=== PATIENT | male | born 1945 | race Caucasian/White ===

== ENCOUNTER → 2016-05-10 | Outpatient (CLI) | payer OTHER | LOC: MMPC 11:11 | PROVIDERS: ATTEND Surgery | DX: R19.4 Change in bowel habit (principal); Z80.0 Family history of malignant neoplasm of digestive organs | CPT/HCPCS: 99213; G0463 ==

== ENCOUNTER → 2016-05-29 | Outpatient (CLI) | payer OTHER | LOC: MMPC 11:11 | PROVIDERS: ATTEND Internal Medicine | DX: Z01.818 Encounter for other preprocedural examination (principal); R01.1 Cardiac murmur, unspecified; J44.9 Chronic obstructive pulmonary disease, unspecified; H25.9 Unspecified age-related cataract | CPT/HCPCS: 99214; G0463 ==

== ENCOUNTER → 2016-06-07 | Outpatient (CLI) | payer OTHER | LOC: MMPC 10:00 | PROVIDERS: ATTEND Podiatrist Foot & Ankle Surgery | DX: L84 Corns and callosities (principal); M79.672 Pain in left foot; M24.575 Contracture, left foot; M20.42 Other hammer toe(s) (acquired), left foot; M21.6X2 Other acquired deformities of left foot; L60.3 Nail dystrophy | CPT/HCPCS: 11055 ×2; G0463 ==

== ENCOUNTER 2016-06-11 06:33 | Day surgery (SDC) | payer OTHER ==
[~2016-06-11 06:33] MED LIST: PROPOFOL 10 MG/1 ML (200 MG/20 ML) VIAL IV ONE
[2016-06-11] MEDS ORDERED: Lactated Ringers 1,000 ML PRIMARY IV ONE (07:13)
[2016-06-11] MEDS ORDERED: LIDOCAINE W/ SODIUM BICARB 0.5 ML SYR ONE (07:13)
[2016-06-11 09:09] VITALS: RESP 12; TEMP 97.6
== END 2016-06-11 09:16 | disposition home or self-care (01) ==
LOC: SDSC 06:33
PROVIDERS: ATTEND Ophthalmology
DX: H25.12 Age-related nuclear cataract, left eye (principal)
CPT/HCPCS: 00142; 66984; J2704; J7120

== ENCOUNTER → 2016-08-27 | Outpatient (CLI) | payer OTHER | LOC: MMPC 11:11 | PROVIDERS: ATTEND Internal Medicine | DX: J44.9 Chronic obstructive pulmonary disease, unspecified (principal); I27.2 Other secondary pulmonary hypertension; L57.0 Actinic keratosis | CPT/HCPCS: 17000 ×2; 17003 ×2; 99214; G0463 ==

== ENCOUNTER → 2016-09-06 | Outpatient (CLI) | payer OTHER | LOC: MMPC 10:00 | PROVIDERS: ATTEND Podiatrist Foot & Ankle Surgery | DX: M79.672 Pain in left foot (principal); L84 Corns and callosities; L97.511 Non-pressure chronic ulcer of other part of right foot limited to breakdown of skin; M21.6X1 Other acquired deformities of right foot; M20.41 Other hammer toe(s) (acquired), right foot; M24.574 Contracture, right foot; L60.3 Nail dystrophy; M21.6X2 Other acquired deformities of left foot; M20.42 Other hammer toe(s) (acquired), left foot; M24.575 Contracture, left foot | CPT/HCPCS: 11055 ×2; 11721 ×2; G0463 ==

== ENCOUNTER → 2016-11-15 | Outpatient (CLI) | payer OTHER | LOC: MMPC 10:00 | PROVIDERS: ATTEND Podiatrist Foot & Ankle Surgery | DX: L84 Corns and callosities (principal); L97.521 Non-pressure chronic ulcer of other part of left foot limited to breakdown of skin; M21.6X2 Other acquired deformities of left foot; M20.42 Other hammer toe(s) (acquired), left foot; M20.41 Other hammer toe(s) (acquired), right foot; M24.575 Contracture, left foot; L60.3 Nail dystrophy | CPT/HCPCS: 11055 ×2; G0463 ==

== ENCOUNTER → 2016-11-26 | Outpatient (CLI) | payer OTHER ==
[2016-11-26 10:53] LABS: HEMATOCRIT 40.2 % (42.0-52.0); HEMOGLOBIN 13.6 g/dL (14.0-18.0); MEAN CORPUSCULAR HEMOGLOBIN 32.6 PG (27-31); MEAN CORPUSCULAR HGB CONC 33.8 g/dL (33-37); MEAN CORPUSCULAR VOLUME 96.4 FL (80-90); MEAN PLATELET VOLUME 9.4 FL (7.4-12.2); NEUTROPHILS % (AUTO) 54.5 % (50-80); RED BLOOD COUNT 4.17 10^6/uL (4.70-6.10)
[2016-11-26 10:54] LABS: BASOPHILS # (AUTO) 0.19 10*3/UL; BASOPHILS % (AUTO) 3.2 % (0-1); EOSINOPHILS # (AUTO) 0.15 10*3/UL; EOSINOPHILS % (AUTO) 2.5 % (0-8); LYMPHOCYTES # (AUTO) 1.37 10*3/uL; MONOCYTES # (AUTO) 0.97 10*3/UL (0.3-0.8); MONOCYTES % (AUTO) 16.4 % (5-15); NEUTROPHILS # (AUTO) 3.22 10*3/UL; PLATELET MORPHOLOGY COMMENT NORMAL MORPHOLOGY (NORM); RBC MORPHOLOGY COMMENT NORMAL MORPHOLOGY (NORM); WBC MORPHOLOGY COMMENT NORMAL MORPHOLOGY (NORM)
[2016-11-26 11:09] LABS: BUN/CREATININE RATIO 16.25 (6-20); CALCIUM 8.9 mg/dL (8.7-10.7); SERUM ALBUMIN 3.6 g/dL (3.5-4.8)
== END ==
LOC: MOB LAB 09:59
PROVIDERS: ATTEND Internal Medicine
DX: J44.9 Chronic obstructive pulmonary disease, unspecified (principal); I27.2 Other secondary pulmonary hypertension; I10 Essential (primary) hypertension; M81.8 Other osteoporosis without current pathological fracture; L57.0 Actinic keratosis; H61.22 Impacted cerumen, left ear; Z12.5 Encounter for screening for malignant neoplasm of prostate
CPT/HCPCS: 36415; 80053; 84443; 85025; G0103; 17000; 17003; 69209; 99214

== ENCOUNTER 2018-03-05 10:27 | Inpatient (IN) ==
[2018-03-05] MEDS ORDERED: Sodium Chloride 0.9% 1,000 ML PRIMARY IV ONE (10:43)
[2018-03-05] MEDS ORDERED: ASPIRIN 81 MG (BABY) CHEWABLE TABLET PO ONE (10:43)
[2018-03-05 10:51] LABS: Hematocrit [HCT] 36.1 % (42.0-52.0); MEAN CORPUSCULAR HEMOGLOBIN 27.6 PG (27-31); MEAN CORPUSCULAR HGB CONC 30.5 g/dL (33-37); MEAN CORPUSCULAR VOLUME 90.5 FL (80-90); MEAN PLATELET VOLUME 9.7 FL (7.4-12.2); RED BLOOD COUNT 3.99 10^6/uL (4.70-6.10)
[2018-03-05 10:59] LABS: PLATELET MORPHOLOGY COMMENT NORMAL MORPHOLOGY (NORM); WBC MORPHOLOGY COMMENT NORMAL MORPHOLOGY (NORM)
[2018-03-05 11:11] LABS: RBC MORPHOLOGY COMMENT SEE COMMENTS (NORM)
[2018-03-05 11:12] LABS: BAND NEUTROPHILS % 0 % (0-10); BASOPHILS % (MANUAL) 0 % (0-1); EOSINOPHILS % (MANUAL) 4 % (0-8); METAMYELOCYTES % 0 %; MONOCYTES % (MANUAL) 8 % (0-12); MYELOCYTES % 0 %; NEUTROPHILS % (MANUAL) 76 % (50-80); PROMYELOCYTES % 0 %
[2018-03-05 11:23] LABS: BLOOD UREA NITROGEN 24 mg/dL (7-22)
[2018-03-05 11:24] LABS: BUN/CREATININE RATIO 18.46 (6-20)
[2018-03-05 11:25] LABS: SERUM ALBUMIN 3.4 g/dL (3.5-4.8)
--- NOTE | 2018-03-05 11:37 | DI ---
AP CHEST X-RAY, 03/05/2018 10:43 AM : Clinical History: Chest pain. Previous Exam: 01/22/2018. Soft Tissues: No acute soft tissue or bony abnormality. The patient is status post bilateral total re verse shoulder replacement and placement of metallic struts from T6 through at least L2. There is dis continuity of the struts between T12 and L1. Heart: Normal heart. Lungs: No infiltrate or effusion. There is emphysema with chronic interstitial Prerna B lines indicat ing chronic interstitial pulmonary fibrosis. Mediastinum: Normal mediastinum. Nodules: No pulmonary nodules. Readin. No acute infiltrate or effusion. 2. Emphysema with chronic interstitial pulmonary fibrosis.
--- NOTE | 2018-03-05 13:02 | DI ---
CT ANGIOGRAM OF THE CHEST, 03/05/2018 11:51 AM : Clinical History: Dyspnea. Chest pain. Elevated D-dimer test. Previous Exam: None at this facility. Scans are performed from the base of the neck to the lower lung bases with IV contrast. 50 mL of Isov ue 370 was injected IV. The injection was performed via the right external jugular vein with the briana ent's permission, because of lack of suitable peripheral IV access. No complications were encountered . Proprietary automated bolus tracking software was not used to verify the timing of the injection. The base of the neck and thoracic inlet are normal. There are no abnormal axillary, supraclavicular, mediastinal, or hilar nodes. The patient is status post bilateral total reverse shoulder replacement as well as placement of metallic struts transfixed with pedicle screws through the thoracic and lumba r spine and degenerative metallic artifacts. The right atrium and right ventricle are larger than the left atrium and left ventricle. Coronary artery calcifications are present in all 3 major branches. No pulmonary emboli are identified but there is pulmonary arterial hypertension. There is no acute in filtrate or effusion. Bullae are scattered throughout the lungs indicating bullous emphysema. Prerna B lines are present consistent with chronic interstitial pulmonary fibrosis. There are no pulmonary n odules. Both adrenal glands and the limited views of the liver and spleen are unremarkable except for what probably represents a 15 mm cyst in the dome of the right lobe of the liver. READIN. There is no pulmonary embolism or pulmonary embolism with infarction. Pulmonary arterial hyperten savage is present. The right heart is dilated and larger than the left heart. 2. 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 3. 3 vessel coronary artery disease. 4. 15 mm low-density lesion in the dome of the right lobe of the liver probably representing a cyst. Confirmation that this is a cyst can be performed with ultrasound of the liver.
[2018-03-05] MEDS ORDERED: DILTIAZEM 5 MG/ML - 5 ML IV ONE (13:53)
[2018-03-05] MEDS ORDERED: DILTIAZEM 60 MG TABLET PO ONE (13:54)
--- NOTE | 2018-03-05 14:00 | EKG ---
[address] [address] Measurements Intervals [place] Rate: 98 P: LA: 0 QRS: 60 QRSD: 111 T: 70 QT: 370 QTc: 425 Interpretive Statements ATRIAL FIBRILLATION INDETERMINATE AXIS INCOMPLETE RIGHT BUNDLE BRANCH BLOCK ABNORMAL RHYTHM ECG Compared to ECG 07/26/2015 09:59:48 Indeterminate axis now present Incomplete right bundle-branch block now present Sinus rhythm no longer present Electronically Signed On 03-05-18 16:04:53 [facility] by Nas Garcia [id number]
--- NOTE | 2018-03-05 14:19 | PDOC ---
HPI - History of Present Illness History of Present Illness: This very nice 72-year-old gentleman with history of congestive heart failure comes into the hospital because of shortness about over the last couple days. Denies any chest pain. He shown to have pulmonary hypertension and right-sided heart failure on CT scan no PE while was examining him in the ER patient went into A. 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 fib RVR Tobacco Use: Former Smoker In the Past 12 Months, Have Used or Abuse Any of the Following Substance: None Medication / Allergies Home Medications: Home Medications 3 Medication Instructions Recorded Confirmed Type Albuterol Sulfate [Ventolin Hfa] 2 puff INH Q4-6H #1 inh 06/01/16 03/05/18 Rx aspirin 81 mg tablet,delayed 81 mg PO QDAY tab 05/27/17 03/05/18 History release denosumab 60 mg/mL subcutaneous 60 mg SUBCUT [id number] ml 05/27/17 03/05/18 History syringe ibuprofen 200 mg capsule 200 mg PO QDAY PRN cap 05/27/17 03/05/18 History multivitamin capsule 1 cap PO QDAY ea 05/27/17 03/05/18 History umeclidinium 62.5 mcg/actuation 62.5 mcg INH QDAY ea 05/27/17 03/05/18 History blister powder for inhalation imipramine 50 mg tablet 50 mg PO QHS #30 tab 11/25/17 03/05/18 Rx ferrous gluconate 324 mg (36 mg 324 mg PO QDAY #30 tab 12/17/17 03/05/18 Rx iron) tablet furosemide 40 mg tablet 40 mg PO QDAY #30 tab 01/22/18 03/05/18 Rx olmesartan 5 mg tablet 5 mg PO QDAY #30 tab 01/22/18 03/05/18 Rx potassium chloride ER 20 mEq 20 meq PO QDAY #30 tab 01/22/18 03/05/18 Rx tablet,extended release fluticasone 200 mcg-vilanterol 25 1 inh INH QDAY #28 ea 01/29/18 03/05/18 Rx mcg/dose powder for inhalation Allergies/Adverse Reactions: Allergies 3 Allergy/AdvReac Type Severity Reaction Status Date / Time Penicillins Allergy Intermediate HIVES Verified 03/05/18 10:38 loratadine [From Claritin] AdvReac Intermediate HALLUCINATI Verified 03/05/18 10 :38 ONS Review of Systems - Review of Systems All Systems: Reviewed & No Additional Complaints Except as Stated - Respiratory Respiratory: REPORTS: Dyspnea At Rest, Dyspnea with Exertion. DENIES: Negative System Review, Cough, Sputum, Pleuritic Pain, Hemoptysis, Wheezing, Other, See HPI - Cardiovascular Cardiovascular: DENIES: Chest Pain, Syncope, Palpitations - Gastrointestinal Gastrointestinal / Abdominal: DENIES: Negative System Review, Nausea, Vomiting, Diarrhea, Constipation, Abdominal Pain, Bloody Stool, Poor Appetite, Heartburn, Regurgitation, Bloating, Lactose Intolerance, Melena, Bright Red Blood per Rectum, Other, See HPI - Neurological Neurologic: DENIES: Headache, Numbness/Paresthesia, Seizures, Dizziness Exam - Vitals Vital Signs: Vital Signs Temperature 97.6 F Temperature Source Temporal Artery Scan Pulse Rate [Pulse Oximeter] 108 Respiratory Rate 18 Blood Pressure [Left Arm] 86/65 Pulse Ox 94 Oxygen Delivery Method Room Air Height 6 ft Weight 130 lb - General General Appearance: No Acute Distress, Cooperative - Neck Neck Exam: Normal Inspection, Full ROM, No Tenderness, No Lymphadenopathy, No Thyromegaly, JVP is not Raised - Respiratory Respiratory Exam: POSITIVE: Decreased Breath Sounds - Cardiovascular Additional Cardiovascular Details: Irregularly irregular - GI/Abdominal GI/Abdominal Exam: POSITIVE: Normal Bowel Sounds, Non Tender, Non Distended, Soft, No Masses, No Hepatomegaly, No Splenomegaly, No Organomegaly - Extremities Extremities Exam: POSITIVE: No Clubbing Present, No Edema Present, No Cyanosis Present - Neurological Neurological Exam: POSITIVE: Alert, Oriented x 3, No Facial Droop, Speech Intact / Clear, Moves All Extremities Equally Results - Labs CBC and BMP: 03/05/18 10:43 03/05/18 10:37 AFib Stroke Risk Screening - AFib Stroke Risk (CHADS-VASc) Atrial Fibrillation Ischemic Stroke Risk Factors: Congestive Heart Failure, Hypertension, Age 65 to 74 years, Vascular Disease CHADS-VASc Score (A-Fib Stroke Risk Score): 4 CHADS-VASc Risk: High Risk Assessment and Plan - Patient Problems (1) Atrial fibrillation Current Visit: Yes Status: Acute Comment: Patient was given Cardizem IV plus by mouth 60 rate improved if patient does not convert or rate goes back up again we will transfer him to the ICU on Cardizem drip he also will receive some anticoagulation for stroke prophylaxis Code(s): I48.91 - Unspecified atrial fibrillation (2) Troponin I above reference range Current Visit: Yes Status: Acute Comment: We'll check sugars to 63 most likely right heart strain Code(s): R74.8 - Abnormal levels of other serum enzymes (3) CHF (congestive heart failure) Current Visit: Yes Status: Acute Comment: IV Lasix Code(s): I50.9 - Heart failure, unspecified (4) Pulmonary arterial hypertension Current Visit: Yes Status: Acute Code(s): I27.21 - Secondary pulmonary arterial hypertension
[2018-03-05] MEDS ORDERED: LIDOCAINE W/ SODIUM BICARB 0.5 ML SYR SUBD PRN (14:49)
[2018-03-05] MEDS ORDERED: Non-Formulary Drug (Denosumab [Prolia] 60 MG) SUBCUT SCH (14:49)
[2018-03-05] MEDS: Rivaroxaban Tab 10 MG TAB PO SCH ×2 (15:21→16:25)
[2018-03-05] MEDS: ASPIRIN EC 81 MG TABLET PO SCH (15:26)
[2018-03-05] MEDS: DILTIAZEM 60 MG TABLET PO SCH ×2 (16:25→20:28)
[2018-03-05] MEDS ORDERED: DILTIAZEM 60 MG TABLET PO SCH (17:00)
--- NOTE | 2018-03-05 17:50 | EKG ---
[address] [address] Measurements Intervals [place] Rate: 69 P: PA: 0 QRS: 31 QRSD: 98 T: 64 QT: 439 QTc: 458 Interpretive Statements ATRIAL FLUTTER/TACHYCARDIA INDETERMINATE AXIS MODERATE ST DEPRESSION [0.05+ mV ST DEPRESSION] Compared to ECG 03/05/2018 14:00:38 ST (T wave) deviation now present Atrial fibrillation no longer present Incomplete right bundle-branch block no longer present Electronically Signed On 03-06-18 09:07:28 [facility] by Akash Sosa MD [id number]
--- NOTE | 2018-03-05 20:23 | PDOC ---
Chest Pain HPI - General Chief Complaint: Chest Pain Stated Complaint: chest pain, jaw pain Date Seen by Provider: 03/05/18 Time Seen by Provider: 10:30 Source: Patient Exam Limitations: POSITIVE: No limitations Treatment Prior to Arrival: REPORTS: None Nurse's Notes Reviewed & Considered: Yes - History of Present Illness Initial Comments: The patient is a 72-year-old male who is brought to the emergency room by his sister. Patient states that yesterday he had some right sided chest pain, and he had another episode this morning. He presently states he does not have any chest pain. He also states that for the last 2-3 days he's been having pain in his left jaw. Patient has a history of hypertension and congestive heart failure. He complains of some shortness of breath. He has had bilateral shoulder replacements. Lives alone. He has not smoked in 7 years. He drinks some alcohol daily. Body Location Affected: REPORTS: Chest Timing: REPORTS: Intermittent Duration: >24 hours (Some right-sided chest pain last night and this morning; 2- 3 day history of left jaw pain) Severity: Moderate Gone now, lasted (minutes):: 60 Intermittent Episodes Lasting (minutes): 60 Persistent/Worse since (date): 03/04/18 Context: REPORTS: Rest Quality: REPORTS: "Pain", Throbbing Radiation: REPORTS: Jaw (L) Associated Symptoms: REPORTS: Shortness of Breath, Weakness. DENIES: Nausea, Vomiting, Diaphoresis, Hurts to Breathe, Palpitations, Productive Cough (blood) , Productive Cough (sputum), Dizziness Modifying Factors: worse with: None Reported, Movement, Position Change, Pressing On Area, Sitting up, Rest, Antacids, Nitroglycerin, Oxygen, Aspirin, Deep breathing, Exertion, Other Similar Symptoms Previously: No Recently seen/treated/hospitalized: No Any Prior Injuries Related to Current Complaint?: No - Patient Home Medications Home Medications: Home Medications Albuterol Sulfate [Ventolin Hfa] 2 puff INH Q4-6H #1 inh 06/01/16 aspirin 81 mg tablet,delayed release 81 mg PO QDAY tab 05/27/17 denosumab 60 mg/mL subcutaneous syringe 60 mg SUBCUT [id number] ml 05/27/17 ibuprofen 200 mg capsule 200 mg PO QDAY PRN cap 05/27/17 multivitamin capsule 1 cap PO QDAY ea 05/27/17 umeclidinium 62.5 mcg/actuation blister powder for inhalation 62.5 mcg INH QDAY ea 05/27/17 imipramine 50 mg tablet 50 mg PO QHS #30 tab 11/25/17 ferrous gluconate 324 mg (36 mg iron) tablet 324 mg PO QDAY #30 tab 12/17/17 furosemide 40 mg tablet 40 mg PO QDAY #30 tab 01/22/18 olmesartan 5 mg tablet 5 mg PO QDAY #30 tab 01/22/18 potassium chloride ER 20 mEq tablet,extended release 20 meq PO QDAY #30 tab fluticasone 200 mcg-vilanterol 25 mcg/dose powder for inhalation 1 inh INH QDAY #28 ea 01/29/18 - Patient Allergies Allergies/Adverse Reactions: Allergies 3 Allergy/AdvReac Type Severity Reaction Status Date / Time Penicillins Allergy Intermediate HIVES Verified 03/05/18 10:38 loratadine [From Claritin] AdvReac Intermediate HALLUCINATI Verified 03/05/18 10 :38 ONS Past Medical History - heen HEENT History: Cataracts, Dentures/Partials Additional HEENT History: UPPER DENTURES. . CONTACT IN RIGHT EYE. NEEDS THIS TO SEE. HAD AN EYE INJURY SEVERAL YEARS AGO Cardiovascular History: Hypertension Additional Cardiovasular History: NO MEDS FOR HTN Respiratory History: COPD, Other (please comment) Additional Respiratory History: RECENT DIAGNOSIS OF PULMONARY HTN Gastrointestinal History: Denies History Genitourinary History: Denies History Endocrine History: Denies History Musculoskeletal History: Arthritis, Back Injury, Limited ROM, Osteoarthritis Prosthesis or Implant: Yes (BILAT SHOULDERS) Additional Musculoskeletal History: LIMITED ROM IN RIGHT SHOULDER/LUMBAR RADICULOPATHY Neurological History: Denies History Blood Disorders: Previous Bld Transfusions Psychiatric History: Denies History History of Sexually Transmitted Diseases: No Male Reproductive History: Denies History Cancer History: Denies History In Past Year Been Physically Harmed or Verbally Threatened: No History of MDRO: No History of Other Communicable Diseases: No Tobacco Use: Former Smoker Alcohol Use: Other Type of alcohol normally used: Beer In the Past 12 Months, Have Used or Abuse Any Substance: None Previous Surgical History: Yes Type / Date of Surgery: BILAT TSA/ BACK SX X 10/ COLONOSCOPY/ RIGHT CTR/ TONSILLECTOMY/LEFT CATARACT 06/15/ LUMBAR SPINAL FUSION Anesthesia Reactions: No Malignant Hyperthermia: No Significant Family History: Cancer Past Medical History Reviewed: Reviewed - No Changes ROS - Limitations ROS Limitations: No Limitations Constitution: REPORTS: Denies Symptoms Cardiovascular: REPORTS: Chest Pain Respiratory: REPORTS: Shortness Of Breath Neurological: REPORTS: Denies Neuro Symptoms Gastrointestinal: REPORTS: Denies GI Symptoms Endocrine: REPORTS: Denies Symptoms Musculoskeletal: REPORTS: Denies MS Symptoms Genitourinary: REPORTS: Denies Symptoms Eyes: REPORTS: Denies Symptoms ENT: REPORTS: Denies Symptoms Skin: REPORTS: Denies Skin Symptoms Lympathic: REPORTS: Denies Lympathic Symptoms Immunologic: POSITIVE: Denies Symptoms Psychiatric: POSITIVE: Denies Psych Symptoms Chest Pain PE - General Appearance General Appearance: REPORTS: Alert, Cooperative, No Acute Distress, No Evidence of Trauma - HEENT HEENT: POSITIVE: Head Inspection Nml, Eyes Inspection Nml, Ears Inspection Nml, Nose Inspection Nml, Oral/Dental Inspect. Nml, Pharynx Inspect. Nml, PERRL, EOMI - Neck Neck: REPORTS: Normal Inspection, No Carotid Bruit - Respiratory Respiratory: REPORTS: No Respiratory Distress, Chest Non-Tender, Rhonchi. DENIES: Breath Sounds Normal, Wheezes, Rales, Respiratory Distress, Distinct Pain on Movement - Cardiovascular Cardiovascular: REPORTS: Regular Rate and Rhythm, Heart Sounds Normal, Equal Pulses, Strong Pulses, No Murmur, No Gallop, No Friction Rub, No JVD. DENIES: Irregularly Irreg Rhythm, Tachycardia, Bradycardia, Occasional Extrasystoles, Frequent Extrasystoles, JVD Present, S3 Gallop, S4 Gallop, Murmur, Friction Rub , Ivania's Crunch, Bilat BPs Asymmetrical Peripheral Pulses: Radial (R): 2+, Radial (L): 2+ - Abdomen Abdomen: Soft: (All Quadrants), Normal Bowel Sounds: (All Quadrants), Denies Tenderness: (All Quadrants), No Splenomegaly: (All Quadrants), No Hepatomegaly: (All Quadrants), No Guarding: (All Quadrants), No Rebound: (All Quadrants), No Palpable Pulse: (All Quadrants), No Palpabale Mass: (All Quadrants), No Distention: (All Quadrants), No Rigidity: (All Quadrants) - Skin Skin: REPORTS: Intact, Normal For Race, Warm, Dry, No Rash - Extremities Extremity: Non-Tender: (All Extremities), Normal ROM: (All Extremities), Normal Inspection: (All Extremities) Additional Extremities Details: Bilateral shoulder deformities, chronic - Neurological / Psychological Neurological: POSITIVE: Affect Apporpriate, Oriented X3, product architect Normal As Tested, Motor Normal, Sensation Normal Chest Pain Progress - Results Reviewed by me Xrays/CTs/US Reviewed by me: Yes Discussed with Radiologist: Yes Radiology Findings: Chest x-ray read as showing no acute infiltrate or effusion ; emphysema with chronic interstitial pulmonary fibrosis. CTA of chest shows no pulmonary emboli; CTAs compatible with pulmonary hypertension and right heart dilation and coronary artery disease. Lab Results Reviewed by Me: Yes CBC and BMP: 03/05/18 10:43 03/05/18 10:37 Lab Results:: Laboratory Results 3 03/05/18 03/05/18 03/05/18 10:37 10:37 10:43 WBC 13.09 H RBC 3.99 L Hgb 11.0 L Hct 36.1 L MCV 90.5 H MCH 27.6 MCHC 30.5 L RDW Std Deviation 69.6 H RDW Coeff of Lacy 21.8 H Plt Count 362 H MPV 9.7 Immature Gran % (Auto) Steward/Stewardess Night Neut % (Auto) Steward/Stewardess Night Lymph % (Auto) Steward/Stewardess Night [place] % (Auto) Steward/Stewardess Night Eos % (Auto) Steward/Stewardess Night Baso % (Auto) Steward/Stewardess Night Immature Gran # (Auto) Steward/Stewardess Night Neut # (Auto) Steward/Stewardess Night Lymph # (Auto) Steward/Stewardess Night [place] # (Auto) Steward/Stewardess Night Eos # (Auto) Steward/Stewardess Night Baso # (Auto) Steward/Stewardess Night Neutrophils % (Manual) 76 Band Neutrophils % 0 Lymphocytes % (Manual) 12 Monocytes % (Manual) 8 Eosinophils % (Manual) 4 Basophils % (Manual) 0 Metamyelocytes % 0 Myelocytes % 0 Promyelocytes % 0 Blast Cells 0 WBC Morphology Comment Normal morphology Plt Morphology Comment Normal morphology RBC Morph Comment See comments D-Dimer 3.32 H Sodium 135 Potassium 5.2 Chloride 99 Carbon Dioxide 24 Anion Gap 12 BUN 24 H Creatinine 1.3 Estimated GFR Steward/Stewardess Night BUN/Creatinine Ratio 18.46 Glucose 100 Calculated Osmolality 283.0 Calcium 8.2 L Total Bilirubin 1.0 AST 25 ALT 17 L Alkaline Phosphatase 98 CK-MB (CK-2) Troponin I NT-Pro-B Natriuret Pep Total Protein 7.3 Albumin 3.4 L Globulin 3.9 Albumin/Globulin Ratio 0.80 L 3 03/05/18 03/05/18 10:43 10:44 WBC RBC Hgb Hct MCV MCH MCHC RDW Std Deviation RDW Coeff of Lacy Plt Count MPV Immature Gran % (Auto) Neut % (Auto) Lymph % (Auto) [place] % (Auto) Eos % (Auto) Baso % (Auto) Immature Gran # (Auto) Neut # (Auto) Lymph # (Auto) [place] # (Auto) Eos # (Auto) Baso # (Auto) Neutrophils % (Manual) Band Neutrophils % Lymphocytes % (Manual) Monocytes % (Manual) Eosinophils % (Manual) Basophils % (Manual) Metamyelocytes % Myelocytes % Promyelocytes % Blast Cells WBC Morphology Comment Plt Morphology Comment RBC Morph Comment D-Dimer Sodium Potassium Chloride Carbon Dioxide Anion Gap BUN Creatinine Estimated GFR BUN/Creatinine Ratio Glucose Calculated Osmolality Calcium Total Bilirubin AST ALT Alkaline Phosphatase CK-MB (CK-2) 3.89 Troponin I 0.023 NT-Pro-B Natriuret Pep 81413 H Total Protein Albumin Globulin Albumin/Globulin Ratio EKG Interpreted/Reviewed By Me:: Yes EKG Interpretation:: POSITIVE: Normal Sinus Rhythm, Normal Intervals, Normal [place], Normal QRS, Normal ST/T, Abnormal EKG (Mild sinus tachycardia). NEGATIVE : Normal Rate (10 5 bpm) - Patient's Progress Pain Medication Addressed: POSITIVE: Not Applicable School/Work Release Addressed: POSITIVE: Not Applicable Re-Examine Time: 13:00 Re-Examine Comment: Case discussed with , hospitalist, who will admit the patient for further evaluation and treatment. Status: POSITIVE: Unchanged, Re-Examined Quality Measure Initiative: CP/AMI: POSITIVE: EKG, ASA - Consult Consult (If Yes, Name of Consulting MD & Time Called): Yes (Dr. Lizarraga, hospitalist [id number]) Consulting MD will see pt:: POSITIVE: [facility] ED[facility] Admit Counseled: POSITIVE: Patient, Family (Niece), RE: Lab Results, RE: Radiology Results, RE: DX, RE: Need for F/U Patient Care Time - Estimated PCT Patient Care Time (In Minutes): 50 Vital Signs - Recent Vital Signs Vital Signs: Vital Signs (Last 8 hours) Temp Pulse Pulse Resp BP Pulse Ox 03/05/18 17:00 98.2 F 72 20 96/55 100 03/05/18 15:06 98.4 F 87 22 94/58 92 03/05/18 15:00 72 - VS Reviewed Vital Signs Reviewed: Yes Discharge Clinical Impression: Atypical chest pain, Congestive heart failure, Pulmonary hypertension Date Decision to Admit to Inpatient: 03/05/18 Time Decision to Admit to Inpatient: 13:00
[2018-03-05] MEDS: IMIPRAMINE HCL 50 MG PO SCH (20:28)
[2018-03-06 05:02] LABS: BASOPHILS # (AUTO) 0.02 10*3/UL; BASOPHILS % (AUTO) 0.2 % (0-1); EOSINOPHILS % (AUTO) 3.7 % (0-8); Hematocrit [HCT] 31.2 % (42.0-52.0); LYMPHOCYTES # (AUTO) 1.09 10*3/uL; MEAN CORPUSCULAR HEMOGLOBIN 26.5 PG (27-31); MEAN CORPUSCULAR HGB CONC 28.8 g/dL (33-37); MEAN CORPUSCULAR VOLUME 91.8 FL (80-90); MEAN PLATELET VOLUME 9.7 FL (7.4-12.2); MONOCYTES % (AUTO) 17.4 % (5-15); NEUTROPHILS % (AUTO) 64.9 % (50-80)
[2018-03-06 05:26] LABS: BLOOD UREA NITROGEN 26 mg/dL (7-22); SERUM ALBUMIN 2.8 g/dL (3.5-4.8)
[2018-03-06 05:27] LABS: PLATELET MORPHOLOGY COMMENT NORMAL MORPHOLOGY (NORM); WBC MORPHOLOGY COMMENT NORMAL MORPHOLOGY (NORM)
[2018-03-06 05:28] LABS: RBC MORPHOLOGY COMMENT SEE COMMENTS (NORM)
[2018-03-06] MEDS ORDERED: FUROSEMIDE 10 MG/1 ML - 2 ML VIAL IVP SCH (07:00)
[2018-03-06] MEDS: ASPIRIN EC 81 MG TABLET PO SCH (08:43)
[2018-03-06] MEDS: FERROUS GLUCONATE 324 MG TABLET PO SCH (08:43)
[2018-03-06] MEDS: DILTIAZEM 60 MG TABLET PO SCH ×4 (08:43→20:57)
[2018-03-06] MEDS: POTASSIUM CHLORIDE 20 MEQ TAB PO SCH (08:43)
[2018-03-06] MEDS: Non-Formulary Drug (Fluticasone/Vilanterol [Breo Ellipta 200-25 Mcg Inh] 1 INH) INH SCH (08:55)
[2018-03-06] MEDS: predniSONE Tab 20 MG TAB PO SCH (13:05)
[2018-03-06] MEDS ORDERED: Naproxen Tab 500 MG TAB PO PRN (14:09)
[2018-03-06] MEDS ORDERED: Naproxen Tab 500 MG TAB PO ONE (14:09)
[2018-03-06] MEDS: Rivaroxaban Tab 10 MG TAB PO SCH (16:53)
[2018-03-06] MEDS ORDERED: ALBUTEROL SULFATE 2.5 MG/3 ML NEB PRN (18:51)
--- NOTE | 2018-03-06 18:52 | PDOC(PROG) ---
Date of Service: 03/06/18 Time of Service: 10:30 Interval History: feels short of breath, states phlegm is greener than normal. on 4 LPM but baseline of 3 LPM at home. no chest pain. no nausea or vomiting. feels weak. no palpitations. Objective : Data - Labs CBC and BMP: 03/06/18 04:40 03/06/18 04:40 Additional Lab Results: 03/05/18 03/05/18 03/05/18 10:43 14:49 20:52 PT INR Troponin I 0.023 0.030 0.040 Total Protein Albumin Globulin Albumin/Globulin Ratio TSH Free T4 03/06/18 03/06/18 03/06/18 04:40 04:40 04:40 PT 15.2 H INR 1.47 Troponin I Total Protein 6.4 Albumin 2.8 L Globulin 3.6 Albumin/Globulin Ratio 0.70 L TSH 2.55 Free T4 2.35 H Objective : Exam - General General Appearance: No Acute Distress, Cooperative Additional General Exam Details: Vital Signs - Last Taken Temperature 98.8 F 03/06/18 16:01 Pulse Rate 81 03/06/18 16:01 Respiratory Rate 19 03/06/18 16:01 Blood Pressure 130/66 03/06/18 16:01 Pulse Ox 100 03/06/18 16:01 - Eye Eye Exam: No Scleral Icterus - ENT ENT Exam: Mucous Membranes Moist - Respiratory Respiratory Exam: Breathing Non Labored, Coarse Breath Sounds, Accessory Muscle Use, Dull to Percussion - Cardiovascular Cardiovascular Exam: RRR, No Murmur, No Clicks, No Gallops, No Rubs, No JVD - GI/Abdominal GI/Abdominal Exam: Normal Bowel Sounds, Non Tender, Non Distended, Soft - Extremities Extremities Exam: No Edema Present, No Cyanosis Present, Clubbing Present - Back Back Exam: No CVA Tenderness - Neurological Neurological Exam: Alert, Oriented x 3, No Facial Droop, Speech Intact / Clear, Moves All Extremities Equally Assessment and Plan - Patient Problems (1) COPD exacerbation Current Visit: Yes Status: Acute Code(s): J44.1 - Chronic obstructive pulmonary disease with (acute) exacerbation (2) Atrial fibrillation Current Visit: Yes Status: Acute Code(s): I48.91 - Unspecified atrial fibrillation Qualifiers: Atrial fibrillation type: unspecified Qualified Code(s): I48.91 - Unspecified atrial fibrillation (3) CHF (congestive heart failure) Current Visit: Yes Status: Acute Code(s): I50.9 - Heart failure, unspecified Qualifiers: Heart failure type: right-sided Heart failure chronicity: acute Qualified Code(s): I50.811 - Acute right heart failure (4) Pulmonary arterial hypertension Current Visit: Yes Status: Acute Code(s): I27.21 - Secondary pulmonary arterial hypertension (5) Troponin I above reference range Current Visit: Yes Status: Resolved Code(s): R74.8 - Abnormal levels of other serum enzymes - Assessment / Plan Additional Assessment/Plan Details: despite afib, albuterol NEBS PRN start antibiotics and prednisone for COPD exacerbation continue rate control and CVA prevention with xarelto apparently had recent ECHO, so hold off on repeating labs in AM
[2018-03-06] MEDS: IMIPRAMINE HCL 50 MG PO SCH (20:56)
[2018-03-06] MEDS: DOXYCYCLINE HYCLATE 100 MG CAPSULE PO SCH (20:57)
[2018-03-07 05:10] LABS: BASOPHILS # (AUTO) 0 10*3/UL; BASOPHILS % (AUTO) 0 % (0-1); EOSINOPHILS # (AUTO) 0.02 10*3/UL; EOSINOPHILS % (AUTO) 0.4 % (0-8); Hematocrit [HCT] 32.6 % (42.0-52.0); Hemoglobin [HGB] 9.7 g/dL (14.0-18.0); LYMPHOCYTES # (AUTO) 0.63 10*3/uL; MEAN CORPUSCULAR HEMOGLOBIN 26.9 PG (27-31); MEAN CORPUSCULAR HGB CONC 29.8 g/dL (33-37); MEAN CORPUSCULAR VOLUME 90.3 FL (80-90); MEAN PLATELET VOLUME 9.7 FL (7.4-12.2); MONOCYTES # (AUTO) 0.35 10*3/UL (0.3-0.8); MONOCYTES % (AUTO) 6.9 % (5-15); NEUTROPHILS # (AUTO) 4.05 10*3/UL; NEUTROPHILS % (AUTO) 79.9 % (50-80); RED BLOOD COUNT 3.61 10^6/uL (4.70-6.10)
[2018-03-07 05:37] LABS: BLOOD UREA NITROGEN 23 mg/dL (7-22)
[2018-03-07 06:16] LABS: PLATELET MORPHOLOGY COMMENT NORMAL MORPHOLOGY (NORM); RBC MORPHOLOGY COMMENT NORMAL MORPHOLOGY (NORM); WBC MORPHOLOGY COMMENT NORMAL MORPHOLOGY (NORM)
[2018-03-07] MEDS: Non-Formulary Drug (Fluticasone/Vilanterol [Breo Ellipta 200-25 Mcg Inh] 1 INH) INH SCH (06:27)
[2018-03-07] MEDS: DOXYCYCLINE HYCLATE 100 MG CAPSULE PO SCH ×2 (09:42→20:21)
[2018-03-07] MEDS: DILTIAZEM 60 MG TABLET PO SCH ×2 (09:42→13:26)
[2018-03-07] MEDS: ASPIRIN EC 81 MG TABLET PO SCH (09:42)
[2018-03-07] MEDS: predniSONE Tab 20 MG TAB PO SCH (09:42)
[2018-03-07] MEDS: FERROUS GLUCONATE 324 MG TABLET PO SCH (09:42)
[2018-03-07] MEDS: POTASSIUM CHLORIDE 20 MEQ TAB PO SCH (09:42)
[2018-03-07] MEDS: CALCIUM CARBONATE 500 MG (TUMS) CHEWABLE TABLET PO PRN ×2 (11:45→19:35)
[2018-03-07] MEDS ORDERED: PANTOPRAZOLE 40 MG TABLET PO ONE (13:51)
[2018-03-07] MEDS ORDERED: DILTIAZEM HCL CD 120 MG CAP PO ONE (14:06)
--- NOTE | 2018-03-07 15:48 | PDOC(PROG) ---
Date of Service: 03/07/18 Time of Service: 09:00 Interval History: States that he feels somewhat better. Was able to ambulate to the shower a little after his visit and had some shortness of breath at the very end of his walk. He does not walk very far at home, cannot walk down of her child, and could not walk up a flight of stairs. No chest pain today. No nausea or vomiting. Overall, feels weak but better. Objective : Data - Labs CBC and BMP: 03/07/18 04:35 03/07/18 04:35 Additional Lab Results: 03/07/18 03/07/18 03/07/18 04:35 08:16 08:16 Iron 17 L TIBC 258 L % Saturation 6.59 L NT-Pro-B Natriuret Pep 7900 H Vitamin B12 707 Serum Folate 6.04 Objective : Exam - General General Appearance: No Acute Distress, Cooperative Additional General Exam Details: Vital Signs - Last Taken Temperature 97.8 F 03/07/18 11:51 Pulse Rate 73 03/07/18 11:51 Respiratory Rate 22 03/07/18 11:51 Blood Pressure 121/67 03/07/18 11:51 Pulse Ox 94 03/07/18 11:51 - Eye Eye Exam: No Scleral Icterus - Respiratory Respiratory Exam: Clear to Auscultation - Bilaterally, Decreased Breath Sounds - Cardiovascular Cardiovascular Exam: No Murmur, No Clicks, No Gallops, No Rubs, Irregular Rhythm, No JVD - GI/Abdominal GI/Abdominal Exam: Normal Bowel Sounds, Non Tender, Non Distended, Soft - Extremities Extremities Exam: No Clubbing Present, No Edema Present, No Cyanosis Present - Neurological Neurological Exam: Alert, Oriented x 3, No Facial Droop, Speech Intact / Clear, Moves All Extremities Equally Assessment and Plan - Patient Problems (1) COPD exacerbation Current Visit: Yes Status: Acute Code(s): J44.1 - Chronic obstructive pulmonary disease with (acute) exacerbation (2) Atrial fibrillation Current Visit: Yes Status: Acute Code(s): I48.91 - Unspecified atrial fibrillation Qualifiers: Atrial fibrillation type: persistent Qualified Code(s): I48.1 - Persistent atrial fibrillation (3) CHF (congestive heart failure) Current Visit: Yes Status: Acute Code(s): I50.9 - Heart failure, unspecified Qualifiers: Heart failure type: right-sided Heart failure chronicity: acute Qualified Code(s): I50.811 - Acute right heart failure (4) Pulmonary arterial hypertension Current Visit: Yes Status: Acute Code(s): I27.21 - Secondary pulmonary arterial hypertension - Assessment / Plan Additional Assessment/Plan Details: Like to continue with doxycycline and prednisone. Reduce Cardizem to 120 mg CD daily Continue Xarelto Patient recently had echocardiogram a few months ago. I'll not repeat that at this time. We'll try to arrange them an outpatient cardiology appointment. He is quite weak, needs physical therapy, and may benefit from a swing bed so I' ll put in for evaluation of that.
[2018-03-07] MEDS: Rivaroxaban Tab 10 MG TAB PO SCH (16:05)
[2018-03-07] MEDS: IMIPRAMINE HCL 50 MG PO SCH (20:21)
[2018-03-08] MEDS: Non-Formulary Drug (Fluticasone/Vilanterol [Breo Ellipta 200-25 Mcg Inh] 1 INH) INH SCH (06:28)
[2018-03-08] MEDS: PANTOPRAZOLE 40 MG TABLET PO SCH (07:23)
[2018-03-08] MEDS: DILTIAZEM HCL CD 120 MG CAP PO SCH (09:24)
[2018-03-08] MEDS: predniSONE Tab 20 MG TAB PO SCH (09:24)
[2018-03-08] MEDS: ASPIRIN EC 81 MG TABLET PO SCH (09:24)
[2018-03-08] MEDS: FERROUS GLUCONATE 324 MG TABLET PO SCH (09:24)
[2018-03-08] MEDS: POTASSIUM CHLORIDE 20 MEQ TAB PO SCH (09:24)
[2018-03-08] MEDS: DOXYCYCLINE HYCLATE 100 MG CAPSULE PO SCH ×2 (09:24→20:13)
[2018-03-08] MEDS ORDERED: IBUPROFEN 600 MG TABLET PO PRN (11:42)
--- NOTE | 2018-03-08 11:52 | PDOC(PROG) ---
Date of Service: 03/08/18 Time of Service: 11:45 Interval History: No chest pain. Still very short of breath. Some incremental improvement but not a lot. Definitely not at his baseline. Still struggling with some activities. He does feel like therapy could help him. He does not feel he is at his baseline to go home yet. Objective : Data - Labs CBC and BMP: 03/07/18 04:35 03/07/18 04:35 Objective : Exam - General General Appearance: No Acute Distress, Cooperative Additional General Exam Details: Vital Signs - Last Taken Temperature 98.2 F 03/08/18 07:30 Pulse Rate 77 03/08/18 07:30 Respiratory Rate 18 03/08/18 07:30 Blood Pressure 131/73 03/08/18 07:30 Pulse Ox 97 03/08/18 07:30 Still at 3-1/2 L and his baseline at home is 3 L. - Eye Eye Exam: No Scleral Icterus - ENT ENT Exam: Mucous Membranes Moist - Respiratory Respiratory Exam: Breathing Non Labored, Decreased Breath Sounds (Diminished breath sounds throughout.) - Cardiovascular Cardiovascular Exam: RRR, No Murmur, No Clicks, No Gallops, No Rubs, No JVD - GI/Abdominal GI/Abdominal Exam: Normal Bowel Sounds, Non Tender, Non Distended, Soft - Extremities Extremities Exam: No Edema Present, No Cyanosis Present, Clubbing Present - Neurological Neurological Exam: Alert, Oriented x 3, No Facial Droop, Speech Intact / Clear, Moves All Extremities Equally Assessment and Plan - Patient Problems (1) COPD exacerbation Current Visit: Yes Status: Acute Code(s): J44.1 - Chronic obstructive pulmonary disease with (acute) exacerbation (2) Atrial fibrillation Current Visit: Yes Status: Acute Code(s): I48.91 - Unspecified atrial fibrillation Qualifiers: Atrial fibrillation type: persistent Qualified Code(s): I48.1 - Persistent atrial fibrillation (3) CHF (congestive heart failure) Current Visit: Yes Status: Acute Code(s): I50.9 - Heart failure, unspecified Qualifiers: Heart failure type: right-sided Heart failure chronicity: acute Qualified Code(s): I50.811 - Acute right heart failure (4) Pulmonary arterial hypertension Current Visit: Yes Status: Acute Code(s): I27.21 - Secondary pulmonary arterial hypertension - Assessment / Plan Additional Assessment/Plan Details: In terms of the atrial fibrillation, rate control with Cardizem and Xarelto for CVA prevention. In terms of the COPD exacerbation, the patient is not back at his baseline, but I do think he is improving incrementally with doxycycline and steroids and breathing treatments as necessary. His oxygen has been increased to as high as 4 L and is currently at 3-1/2 L and his baseline at home is 3 L. His activity level I think will improve with more therapy and I think he would benefit greatly from a swing bed for further strengthening prior to going home. His niece, Sophie, is a nurse here at the hospital. She is out of town today but the patient is fine with me discussing his care with her tomorrow. I will give her a call tomorrow to discuss. As it is, he is not quite ready from an inpatient side to go home from the COPD exacerbation. He has severe right-sided congestive heart failure, cor pulmonale , and right ventricular enlargement per his recent echocardiogram, and I think all of this is really at its end stage and he may need a little bit more time to improve to try and keep him at home post this hospital stay. Patient agrees with the plan above.
[2018-03-08] MEDS: Rivaroxaban Tab 10 MG TAB PO SCH (16:19)
[2018-03-08] MEDS: IMIPRAMINE HCL 50 MG PO SCH (20:13)
[2018-03-09] MEDS: Non-Formulary Drug (Fluticasone/Vilanterol [Breo Ellipta 200-25 Mcg Inh] 1 INH) INH SCH (06:47)
[2018-03-09] MEDS: PANTOPRAZOLE 40 MG TABLET PO SCH (07:35)
[2018-03-09] MEDS: DILTIAZEM HCL CD 120 MG CAP PO SCH (08:48)
[2018-03-09] MEDS: POTASSIUM CHLORIDE 20 MEQ TAB PO SCH (08:48)
[2018-03-09] MEDS: FERROUS GLUCONATE 324 MG TABLET PO SCH (08:48)
[2018-03-09] MEDS: predniSONE Tab 20 MG TAB PO SCH (08:48)
[2018-03-09] MEDS: DOXYCYCLINE HYCLATE 100 MG CAPSULE PO SCH ×2 (08:48→20:25)
[2018-03-09] MEDS: ASPIRIN EC 81 MG TABLET PO SCH (08:48)
--- NOTE | 2018-03-09 10:03 | PDOC(PROG) ---
Date of Service: 03/09/18 Time of Service: 09:57 Interval History: No chest pain. Shortness breath is better. Physical endurance is very poor and conditioning is helping with therapy and the patient is very onboard with doing a swing bed. He will finish therapy for acute exacerbation tonight and I' m hoping to have him on swing bed tomorrow. I spoke with his niece, Sophie, an RN here, and his sister, and they are on board with the plan as well and agree with this. Objective : Data - Labs CBC and BMP: 03/07/18 04:35 03/07/18 04:35 Objective : Exam - General General Appearance: No Acute Distress, Cooperative Additional General Exam Details: Vital Signs - Last Taken Temperature 98.4 F 03/09/18 07:29 Pulse Rate 77 03/09/18 07:29 Respiratory Rate 20 03/09/18 07:29 Blood Pressure 141/81 03/09/18 07:29 Pulse Ox 97 03/09/18 07:29 - Eye Eye Exam: No Scleral Icterus - ENT ENT Exam: Mucous Membranes Moist - Respiratory Respiratory Exam: Breathing Non Labored, Decreased Breath Sounds - Cardiovascular Cardiovascular Exam: RRR, No Murmur, No Clicks, No Gallops, No Rubs, No JVD - GI/Abdominal GI/Abdominal Exam: Normal Bowel Sounds, Non Tender, Non Distended, Soft - Extremities Extremities Exam: No Edema Present, No Cyanosis Present, Clubbing Present Additional Extremities Exam Details: Also has palmar erythema - Neurological Neurological Exam: Alert, Oriented x 3, No Facial Droop, Speech Intact / Clear, Moves All Extremities Equally - Psychiatric Psychiatric Exam: Normal Affect, Normal Mood Assessment and Plan - Patient Problems (1) COPD exacerbation Current Visit: Yes Status: Acute Code(s): J44.1 - Chronic obstructive pulmonary disease with (acute) exacerbation (2) Atrial fibrillation Current Visit: Yes Status: Acute Code(s): I48.91 - Unspecified atrial fibrillation Qualifiers: Atrial fibrillation type: persistent Qualified Code(s): I48.1 - Persistent atrial fibrillation (3) CHF (congestive heart failure) Current Visit: Yes Status: Acute Code(s): I50.9 - Heart failure, unspecified Qualifiers: Heart failure type: right-sided Heart failure chronicity: acute Qualified Code(s): I50.811 - Acute right heart failure (4) Pulmonary arterial hypertension Current Visit: Yes Status: Acute Code(s): I27.21 - Secondary pulmonary arterial hypertension - Assessment / Plan Additional Assessment/Plan Details: Heart rate seems better controlled at this point. He is tolerating the Cardizem CD and Xarelto okay at this point. I think he would benefit from a long-acting beta agonist in addition to his long acting muscarinic antagonist. I would like to avoid inhaled steroids in this patient. Flu vaccine and Pneumovax if desired. Swing bed tomorrow for continued physical conditioning. Probably needs eventual follow-up with cement paver here in [place] post hospital stay for atrial fibrillation. However, I don't think the patient make a great candidate for other therapies if what he is on right now as tolerated. He has severe right heart failure. I did discuss that the patient's prognosis is not great. Based on end-stage COPD, 50% chance that he would pass on it for years and I really think he probably has a urine last left to live I try to convey that to the patient and his family but again I think that he might be more comfortable doing this at home and if physical therapy can help increase endurance that might keep him home a little longer. In addition I'll write for respiratory therapy to help with pursed lip breathing exercises Plan was discussed with a shunt and family and they all agreed.
[2018-03-09] MEDS: SEREVENT 50 MCG INH SCH ×2 (15:52→20:26)
[2018-03-09] MEDS: Rivaroxaban Tab 10 MG TAB PO SCH (16:24)
[2018-03-09] MEDS: IMIPRAMINE HCL 50 MG PO SCH (20:25)
[2018-03-10] MEDS: Non-Formulary Drug (Fluticasone/Vilanterol [Breo Ellipta 200-25 Mcg Inh] 1 INH) INH SCH (06:51)
--- NOTE | 2018-03-10 08:53 | PTI REPORT ---
Thank you for the referral of Chuck Bravo. He was seen on 03/07/18 for an inpatient evaluation secondary to weakness. SUBJECTIVE: The patient is a 72-year-old male who states that he presented to the hospital secondary to heart issues and shortness of breath. The patient reports that he lives here in [place] and he lives alone. The patient states that prior to his hospitalization he was independent with all ADLs and iADLs. The patient states he was not using any assistive device to get around and denies any falls over the last six months. The patient states that he has two stairs with a railing to get into his house. Once in his house, everything is on one level. The patient reports that he is on 3.5 liters of oxygen at home. The patient does report bilateral rotator cuff repairs for his shoulders a few years prior. PAST MEDICAL HISTORY: Past medical history can be found in the patient's medical record. OBJECTIVE FINDINGS: General observations: The patient was alert and oriented to setting upon the therapist's arrival. The patient was supine in bed with head of bed elevated. Bed mobility: The patient was able to transfer from a supine to seated edge of bed position with stand by assist x1 for safety. Once in a seated position edge of bed, the patient demonstrated good seated balance. Strength: Manual muscle test was performed in a seated position. The patient does have weakness on the right vs. left side which he states has been a chronic problem for him as he does have some low back pain issues. The patient demonstrated 3/5 bilateral hip strength and 4/5 bilateral knee and ankle strength. Transfers: The patient was able to transfer from a seated to standing position with contact guard assist x1 for safety. The patient did require hand hold assist x2 on a front wheeled walker in order to maintain his balance in a standing position. The patient was on 3.5 liters of oxygen during all of these activities. Ambulation: The patient was willing to try ambulating into the hallway with the front wheeled walker. He did require contact guard assist x1 for safety and was able to perform 1 lap around the nurse's station x150 feet. Once we were back in the room the patient was seated edge of bed. It did take a few minutes to obtain his oxygen saturation as his oxygen monitor wasn't working in his room and we did have to get some assistance to help with that. Once we were able to read his oxygen saturation, he was at 80% and he did take approximately 5 minutes plus lots of cueing for proper breathing techniques in order to get back up to 90%. ASSESSMENT: The patient has fair rehab potential secondary to his age and medical history. Problem List: Decreased endurance Decreased activity tolerance Shortness of breath Difficulty with energy conservation Weakness Short-Term Goals: To be met by discharge from inpatient: Patient will be educated on and demonstrate knowledge of energy conservation techniques. Patient will be able to ambulate at least 150 feet with least restrictive assistive device safely and independently and keep his oxygen saturation above 90% on an appropriate amount of oxygen. Patient will be able to ascend and descend at least two stairs with least restrictive assistive device on appropriate amount of oxygen and maintain oxygen saturation above 90%. Long-Term Goals: To be met following discharge from inpatient: Patient may benefit from outpatient physical therapy for energy conservation and general strengthening activities. TREATMENT PLAN: Patient will be seen B.I.D during the week and one time per day over the weekend as an inpatient to address the above goals and objectives. INITIAL TREATMENT: Treatment today consisted of the initial evaluation. The patient was left with OT following treatment. HOWIE
[2018-03-10] MEDS: predniSONE Tab 20 MG TAB PO SCH (08:59)
[2018-03-10] MEDS: FERROUS GLUCONATE 324 MG TABLET PO SCH (08:59)
[2018-03-10] MEDS: DILTIAZEM HCL CD 120 MG CAP PO SCH (08:59)
[2018-03-10] MEDS: ASPIRIN EC 81 MG TABLET PO SCH (08:59)
[2018-03-10] MEDS: PANTOPRAZOLE 40 MG TABLET PO SCH (08:59)
[2018-03-10] MEDS: POTASSIUM CHLORIDE 20 MEQ TAB PO SCH (08:59)
[2018-03-10] MEDS: DOXYCYCLINE HYCLATE 100 MG CAPSULE PO SCH (09:05)
--- NOTE | 2018-03-10 09:25 | PT AM DAY ---
Diagnosis : Weakness AM - Physical Therapy S: The patient states he is doing a little better this morning. He doesn' t feel as unsteady on his feet, but is still complaining of shortness of breath. The patient is on 3.5 liters of oxygen. The patient did agree to come down to therapy this morning and participate with some seated strengthening exercises. O: Treatment consisted of ambulation x25 feet with front wheeled walker and contact guard assist x1 for safety on four liters of oxygen. The patient was then transported via wheelchair down to the therapy room where he was instructed in bilateral upper extremity strengthening activities with red theraband in all planes of motion x10. He then performed ball squeezes x10, bilateral hamstring curls with red theraband x10, bilateral long arc quads x10, and sit to stands x12. The patient did require 2-3 minute rest breaks in between activities in order to try to read his oxygen saturation and also for him to be back at a level where he could participate in more exercises. We did have a difficult time getting a reading from the pulse oximeter, but once the reading would come, which would usually take about 3 minutes, he would be in the mid 90s. The patient then ambulated with front wheeled walker x75 feet. The patient was then brought back up to his room and transferred back into his bed. He was left with call light within reach and bed alarm set. A: The patient tolerated activity better this morning vs. our evaluation yesterday afternoon. We still did require rest breaks and education for energy conservation due to his shortness of breath and lower oxygen saturation. It was hard to get any kind of pulse oximeter reading. It usually did take a couple of minutes and by the time it would read, the patient was back into the 90s. The therapist did talk with nursing aides about getting him a chair in his room so that he could sit upright for his lunch at noon. P: Continue seeing patient BID during the week and one time per day over the weekend for transfers, ambulation, and range of motion/strengthening exercises. MTDD
--- NOTE | 2018-03-10 10:02 | DI ---
US Abdomen Complete,03/10/2018 7:00 AM: Clinical History: Hepatic cyst Previous Exam: None at this facility. Findings: Multiple grayscale and color Doppler sonographic images are obtained through the right upper quadrant . The gallbladder is normal the gallbladder wall measuring 1 mm. Common bile duct measured 4 mm. The aorta is unremarkable. The liver and spleen are normal. The right kidney measured 10.4 cm in long axis without hydronephrosis nor nephrolithiasis. Left kidne y measured 11.4 cm also without hydronephrosis nor nephrolithiasis. There was no hepatic cyst seen on any of these images. Impression: 1. No hepatic mass identified. 2. Normal abdominal ultrasound.
[2018-03-10] MEDS ORDERED: BACITRACIN/POLYMYXIN 0.9 GM PACKET TOPICAL ONE (10:34)
[2018-03-10] MEDS ORDERED: LIDOCAINE HCL 1%/EPI 1:100,000 - 20 ML VIAL ONE (10:34)
--- NOTE | 2018-03-10 10:35 | PT AM DAY ---
Diagnosis : Weakness AM - Physical Therapy S: The patient states he is doing well this morning and is willing to participate with therapy. O: Treatment today consisted of the patient ambulating x25 feet with contact guard assist x1 for safety and 4 liters of oxygen. The patient was then brought down to physical therapy via wheelchair and transferred from chair to seated edge of mat. While seated edge of mat, the patient was instructed on bilateral lower extremity strengthening activities consisting of alternating marching, 10 second holds x3 for alternating long arc quads, 20 resisted hamstring curls with red theraband, 10 ball squeezes, and 10 resisted hip abduction with red theraband, all in a seated position. The patient then performed 10 sit to stand transfers with stand by assist x1 for safety. Seated edge of mat, the patient performed bilateral upper extremity strengthening activities consisting of red theraband upper extremity motions x20 in all planes of motion, red power web x10, yellow flex bar x10, and red and green digi -flex x10. The patient then ambulated 50 feet with contact guard assist x1 for safety before requiring a seated rest break. The patient was then brought up to his room where he transferred back into bed and was left with call light within reach and bed alarm set. A: The patient tolerated treatment fair. He does require rest breaks between each activity due to his shortness of breath. We did try ambulating without an assistive device. The patient did well with as long as he had contact guard assist x1. He had no loss of balance when he was up and ambulating without the front wheeled walker. P: Continue seeing patient BID during the week and one time per day over the weekend for transfers, ambulation, and range of motion/strengthening exercises. MTDD
[2018-03-10 11:20] VITALS: BP 135/68; RESP 18; TEMP 97.8; O2SAT 99
--- NOTE | 2018-03-10 11:56 | OT.PROG ---
Progress Note Progress Note: S: pt reported that he hasn't walked very far. He was dressed and would like to go downstairs. O: pt was seen in room in supine position and completed transition to EOB INd. He completed dressing of UE INd. Once he arrived to therapy he completed Ue exercises with RTB in all planes x15 with BUE's. He was returned to his room after transferring to elevators before sitting in w/c. He completed x1 sit to stand Ind and transferred to bed. He wanted to sit up in bed. His bed alarm was on and call light within reach. A: pt did demonstrate an increase in activity tolerance be completing further transfers. It appeared his ADL dressing was good but will continue to monitor. P: continue per POC.
--- NOTE | 2018-03-10 12:14 | DCSUMMARY ---
Hospitalization Summary Admit Date: 03/05/2018 Discharge Date: 03/10/18 Primary Diagnosis:: atrial fibrillation and COPD exacerbation Hospital Course: This is a very pleasant 72-year-old male with end-stage COPD, and severe cor pulmonale and right ventricular enlargement and right heart failure who came in with atrial fibrillation with rapid ventricular response. He was admitted, placed on Cardizem, and his rate control was obtained. He did not convert right away, but eventually has what sounds like a normal sinus rhythm and his Cardizem was changed to Cardizem cd. He was placed on Xarelto for stroke prevention and prophylaxis. The patient's shortness of breath persisted despite treatment of atrial fibrillation and he described a cough with green sputum, so the patient was placed on antibiotics and steroids. His symptoms have gradually improved. He is now at his baseline oxygen. Patient did have what looked like a cyst on CT scan in the liver. Ultrasound confirmed that this was a simple hepatic cyst. His niece is a nurse here at the hospital, and his sister also helps take care of him. Between discussion with them, and the patient, and physical therapy, it was determined that a swing bed would be best to help strengthen and condition the patient prior to discharge home. He qualified for swing bed today and will be discharged to the swing bed. Today, he denies any chest pain. He states his shortness of breath is tolerable. He states the pain studies been getting in his legs are improved and I think those were muscle pains from increased use with therapy. He is ready to go to the swing bed. Assessment and Plan: 1. As per discharge assessments noted 2. Disposition: Patient is discharged to the swing bed 3. Condition on discharge, stable and improved. 4. Diet: regular diet 5. Activities: Continue with physical therapy 6. Follow-Up: 1. Hospital service will continue to see the patient 2. 7. Medications at the Time of Discharge: Home Medications 3 Medication Instructions Recorded Confirmed Type Albuterol Sulfate [Ventolin Hfa] 2 puff INH Q4-6H #1 inh 06/01/16 03/05/18 Rx aspirin 81 mg tablet,delayed 81 mg PO QDAY tab 05/27/17 03/05/18 History release denosumab 60 mg/mL subcutaneous 60 mg SUBCUT [id number] ml 05/27/17 03/05/18 History syringe ibuprofen 200 mg capsule 200 mg PO QDAY PRN cap 05/27/17 03/05/18 History multivitamin capsule 1 cap PO QDAY ea 05/27/17 03/05/18 History umeclidinium 62.5 mcg/actuation 62.5 mcg INH QDAY ea 05/27/17 03/05/18 History blister powder for inhalation imipramine 50 mg tablet 50 mg PO QHS #30 tab 11/25/17 03/05/18 Rx ferrous gluconate 324 mg (36 mg 324 mg PO QDAY #30 tab 12/17/17 03/05/18 Rx iron) tablet furosemide 40 mg tablet 40 mg PO QDAY #30 tab 01/22/18 03/05/18 Rx olmesartan 5 mg tablet 5 mg PO QDAY #30 tab 01/22/18 03/05/18 Rx potassium chloride ER 20 mEq 20 meq PO QDAY #30 tab 01/22/18 03/05/18 Rx tablet,extended release fluticasone 200 mcg-vilanterol 25 1 inh INH QDAY #28 ea 01/29/18 03/05/18 Rx mcg/dose powder for inhalation 8. Time, care, counseling and coordination of care for this discharge is less than 30 minutes. Exam - Vitals Vital Signs: Vital Signs Vital Signs - Last Taken Temperature 97.8 F 03/10/18 11:17 Pulse Rate 83 03/10/18 11:17 Respiratory Rate 18 03/10/18 11:17 Blood Pressure 135/68 03/10/18 11:17 Pulse Ox 99 03/10/18 11:17 Height 6 ft Weight 122 lb - General General Appearance: No Acute Distress, Cooperative - Eye Eye Exam: POSITIVE: No Scleral Icterus - ENT ENT Exam: POSITIVE: Mucous Membranes Moist - Respiratory Respiratory Exam: POSITIVE: Breathing Non Labored, Decreased Breath Sounds, Dull to Percussion - Cardiovascular Cardiovascular Exam: POSITIVE: RRR, No Murmur, No Clicks, No Gallops, No Rubs, No JVD - GI/Abdominal GI/Abdominal Exam: POSITIVE: Normal Bowel Sounds, Non Tender, Non Distended, Soft - Extremities Extremities Exam: POSITIVE: No Edema Present, No Cyanosis Present, Clubbing Present Additional Extremities Exam Details: Palmar erythema present. - Neurological Neurological Exam: POSITIVE: Alert, Oriented x 3, No Facial Droop, Speech Intact / Clear, Moves All Extremities Equally - Psychiatric Psychiatric Exam: POSITIVE: Normal Affect, Normal Mood Data Peritnent Studies: 03/05/18 03/05/18 03/05/18 10:43 10:43 10:44 WBC 13.09 H Hgb Hct Plt Count Sodium Potassium Chloride Carbon Dioxide Anion Gap BUN Creatinine BUN/Creatinine Ratio Glucose Calculated Osmolality Calcium Iron TIBC % Saturation Troponin I 0.023 NT-Pro-B Natriuret Pep 21172 H Vitamin B12 Serum Folate TSH 03/05/18 03/05/18 03/06/18 14:49 20:52 04:40 WBC Hgb Hct Plt Count Sodium Potassium Chloride Carbon Dioxide Anion Gap BUN Creatinine BUN/Creatinine Ratio Glucose Calculated Osmolality Calcium Iron TIBC % Saturation Troponin I 0.030 0.040 NT-Pro-B Natriuret Pep Vitamin B12 Serum Folate TSH 2.55 03/07/18 03/07/18 03/07/18 04:35 04:35 08:16 WBC 5.07 Hgb 9.7 L Hct 32.6 L Plt Count 314 Sodium 135 Potassium 5.0 Chloride 103 Carbon Dioxide 26 Anion Gap 6 BUN 23 H Creatinine 1.0 BUN/Creatinine Ratio 23.00 H Glucose 172 H Calculated Osmolality 287.0 Calcium 8.3 L Iron TIBC % Saturation Troponin I NT-Pro-B Natriuret Pep 7900 H Vitamin B12 707 Serum Folate 6.04 TSH 03/07/18 08:16 WBC Hgb Hct Plt Count Sodium Potassium Chloride Carbon Dioxide Anion Gap BUN Creatinine BUN/Creatinine Ratio Glucose Calculated Osmolality Calcium Iron 17 L TIBC 258 L % Saturation 6.59 L Troponin I NT-Pro-B Natriuret Pep Vitamin B12 Serum Folate TSH Procedures: [address] [facility] [place] [address] PH: DD: [phone] FAX: [phone] ~DIAGNOSTIC IMAGING REPORT~ Patient: Chuck Bravo : 1945 Sex: M Age: 72 Exam Name: CT CTA Chest Non-Coronary [facility] Exam Date: 03/05/18 Report # : [id number] CPT Code: 03232 EMR/MR #: [id number] Ordering: TEQUILA SYED Admiting: Primary: Erickson Ferris MD Attending: Signed CT ANGIOGRAM OF THE CHEST, 03/05/2018 11:51 AM : Clinical History: Dyspnea. Chest pain. Elevated D-dimer test. Previous Exam: None at this facility. Scans are performed from the base of the neck to the lower lung bases with IV contrast. 50 mL of Isovue 370 was injected IV. The injection was performed via the right external jugular vein with the patient's permission, because of lack of suitable peripheral IV access. No complications were encountered. Proprietary automated bolus tracking software was not used to verify the timing of the injection. The base of the neck and thoracic inlet are normal. There are no abnormal axillary, supraclavicular, mediastinal, or hilar nodes. The patient is status post bilateral total reverse shoulder replacement as well as placement of metallic struts transfixed with pedicle screws through the thoracic and lumbar spine and degenerative metallic artifacts. The right atrium and right ventricle are larger than the left atrium and left ventricle. Coronary artery calcifications are present in all 3 major branches. No pulmonary emboli are identified but there is pulmonary arterial hypertension. There is no acute infiltrate or effusion. Bullae are scattered throughout the lungs indicating bullous emphysema. Prerna B lines are present consistent with chronic interstitial pulmonary fibrosis. There are no pulmonary nodules. Both adrenal glands and the limited views of the liver and spleen are unremarkable except for what probably represents a 15 mm cyst in the dome of the right lobe of the liver. READIN. There is no pulmonary embolism or pulmonary embolism with infarction. Pulmonary arterial hypertension is present. The right heart is dilated and larger than the left heart. 2. 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 3. 3 vessel coronary artery disease. 4. 15 mm low-density lesion in the dome of the right lobe of the liver probably representing a cyst. Confirmation that this is a cyst can be performed with ultrasound of the liver. Dictated By: 03/05/18 1249 LEXI MEDINA MD. Signed By: 03/05/18 1307 LEXI MEDINA MD. [address] [facility] [place] [address] PH: DD: [phone] FAX: [phone] ~DIAGNOSTIC IMAGING REPORT~ Patient: Chuck Bravo : 1945 Sex: M Age: 72 Exam Name: US Abdomen Complete Exam Date: 03/10/18 Report # : [id number] CPT Code: 86969 EMR/MR #: [id number] Ordering: RODNEY PAUL Admiting: SELVIN TOBIN MD. Primary: Erickson Ferris MD Attending: SELVIN TOBIN MD. Signed US Abdomen Complete,03/10/2018 7:00 AM: Clinical History: Hepatic cyst Previous Exam: None at this facility. Findings: Multiple grayscale and color Doppler sonographic images are obtained through the right upper quadrant. The gallbladder is normal the gallbladder wall measuring 1 mm. Common bile duct measured 4 mm. The aorta is unremarkable. The liver and spleen are normal. The right kidney measured 10.4 cm in long axis without hydronephrosis nor nephrolithiasis. Left kidney measured 11.4 cm also without hydronephrosis nor nephrolithiasis. There was no hepatic cyst seen on any of these images. Impression: 1. No hepatic mass identified. 2. Normal abdominal ultrasound. Dictated By: 03/10/18 0950 EVERT VERGARA MD. Signed By: 03/10/18 1002 EVERT VERGARA MD. ~~REPORT ADDENDUM 03/10/18~~ Addendum: There is a simple cyst within the dome of the liver measuring 15 mm in diameter. Addendum Dictated By: EVERT VERGARA Addendum Signed By: EVERT VERGARA Patient Problems - Patient Problem List (1) COPD exacerbation Current Visit: Yes Status: Acute Code(s): J44.1 - Chronic obstructive pulmonary disease with (acute) exacerbation Category: Medical (2) Atrial fibrillation Current Visit: Yes Status: Acute Code(s): I48.91 - Unspecified atrial fibrillation Qualifiers: Atrial fibrillation type: persistent Qualified Code(s): I48.1 - Persistent atrial fibrillation Category: Medical (3) CHF (congestive heart failure) Current Visit: Yes Status: Acute Code(s): I50.9 - Heart failure, unspecified Qualifiers: Heart failure type: right-sided Heart failure chronicity: acute Qualified Code(s): I50.811 - Acute right heart failure Category: Medical (4) Pulmonary arterial hypertension Current Visit: Yes Status: Acute Code(s): I27.21 - Secondary pulmonary arterial hypertension Category: Medical (5) Simple hepatic cyst Current Visit: Yes Status: Acute Code(s): K76.89 - Other specified diseases of liver Category: Medical
--- NOTE | 2018-03-10 12:27 | PT.PROG ---
Progress Note Progress Note: S. Patient stated that he is feeling a little better today however continues to be weak. O. Patient ambulated 175 feet to the therapy gym where he performed exercises in the form of; long arc quads, marches, ball squeezes, clam shells, resisted knee flexion, heel toe raises, all x 15 bilaterally with red thera bands and 2# weights, Patient then performed sit to stands x 10 Patient used the nu-step x 6 minutes then ambulated 80 feet to the wheelchair and was wheeled back to his room and was left with call light and alarm. A. Patient tolerated therapy well, he was able to perform all exercises with no increase in pain or problems. Patient continues to require min assist with transfers and ambulation, he would continue to benefit from skilled therapy to increase strength, endurance, and safety at this time. P. Continue POC.
--- NOTE | 2018-03-10 16:36 | OTI REPORT ---
Thank you for the referral of Chuck Bravo. He was seen on 03/07/18 for an occupational therapy inpatient evaluation secondary to weakness. SUBJECTIVE: The patient is a 72-year-old male who lives in [place], [place]. The patient lives by himself. He has two stairs to get inside of his home with one hand rail on one side and no stairs within his home. He reports that he has had no falls in the last 6 months. At prior level of function the patient was driving , cooking, doing laundry tasks, walking, and dressing independently. The patient reports he has a walk-in shower at home with a 4" lip. The patient also reports he has had bilateral rotator cuff repair on his shoulders. The patient was hospitalized due to severe shortness of breath and basically a new onset of a-fib. At home the patient reports he is on 3.5 liters of oxygen. He is currently on 3.5 liters of oxygen at the hospital. The patient reports he is feeling fair today. He states he feels like he gets very short of breath with any activity. The patient did have a shower earlier today and needed to sit down during the showering task. Overall he did well. PAST MEDICAL HISTORY: Past medical history can be found in the patient's medical record. OBJECTIVE FINDINGS: Range of motion: The patient demonstrated upper extremity range of motion bilaterally at 75% of full for shoulder flexion/abduction. Elbow flexion/ abduction was 100% full. Wrist and hand range of motion were within functional limits. Strength: Upper extremity strength bilaterally is 3+/5 for shoulder flexion/ abduction. Elbow flexion/extension is 4/5. Wrist and hand strength are 4/5. Bed mobility: The patient demonstrated the ability to complete bed mobility tasks to include moving from supine to sitting edge of bed. Transfers: The patient completed sit to stand transfer with contact guard assist for safety. Ambulation: The patient did demonstrate the ability to complete functional ambulation task with PT; however, he did fatigue and became short of breath upon exertion. The patient's oxygen did decrease and he desaturated following functional ambulation task. The patient did report feeling shortness of breath. This needs to be monitored closely. ASSESSMENT: The patient has good rehab potential. He is hoping to return home once he is feeling better. The patient also reports that he may need a shower chair upon discharge to home. Occupational Therapy Goals: To be met by discharge from inpatient: Patient will demonstrate the ability to complete energy conservation techniques to include pursed lipped breathing when exerting himself with functional daily activities. Patient will participate in bilateral upper extremity strengthening tasks x10 minutes before requiring a rest break with no oxygen desaturation. Patient will increase bilateral upper extremity strength by one manual muscle grade. Patient will demonstrate the ability to complete standing grooming task x10 minutes to assist with grooming and or meal preparation at home with zero losses of balance before requiring a rest break with no oxygen desaturation. Patient will complete all functional transfers to include toilet/bed/chair with stand by assistance only. Patient will complete entire showering routine (seated if necessary) with contact guard assist only for safety with no losses of balance. TREATMENT PLAN: Patient will be seen B.I.D during the week and one time per day over the weekend as an inpatient to address the above goals and objectives. INITIAL TREATMENT: Treatment today consisted of the initial evaluation only. HOWIE
== END 2018-03-10 12:17 | disposition swing bed (61) | DRG 309 ==
LOC: ER 10:27 → MED/SURG 14:15
PROVIDERS: ADMIT Internal Medicine; ATTEND Internal Medicine

== ENCOUNTER 2018-04-20 21:02 | Inpatient (IN) ==
[2018-04-20] MEDS ORDERED: ONDANSETRON 4 MG/2 ML VIAL IVP ONE (21:05)
[2018-04-20] MEDS ORDERED: IPRATROPIUM/ALBUTEROL SULFATE 3 ML NEB NEB ONE (21:05)
[2018-04-20] MEDS ORDERED: Sodium Chloride 0.9% 1,000 ML PRIMARY IV ONE (21:05)
--- NOTE | 2018-04-20 21:10 | PDOC ---
Dyspnea HPI - General Chief Complaint: Dyspnea Stated Complaint: dyspnea Date Seen by Provider: 04/20/18 Time Seen by Provider: 21:04 Source: POSITIVE: Patient, EMS Exam Limitations: POSITIVE: Clinical condition Treatment Prior to Arrival: REPORTS: Albuterol Neb Treatment Nurse's Notes Reviewed & Considered: No EMS Report Reviewed & Considered: Verbal - History of Present Illness Initial Comments: This is a well-developed 73-year-old male with a history of COPD who comes in t onight from the retirement in respiratory distress with hypoxia. Report is vague with no contact from the retirement to the emergency room. Information was relayed through EMS and the information given was minimal. It appears that the patient was having respiratory issues and shortness of breath at 0300 hrs. this morning at which time he was given a nebulizer treatment which he was unable to complete because he could not hold the nebulizer nor could he cooperate and became increasingly combative. At 2000 hrs. tonight he was given oral Ativan because of his increased anxiety. When EMS arrived and attempted to obtain an oxygen saturation they were unsure if the oxygen meter was functioning properly with him showing an oxygen saturation of approximately 74%. There was a poor waveform. Patient was tripoding. An albuterol treatment was begun via nebulizer and the patient was transported here for further evaluation. It is unknown if there were any fever chills or sweats, and further review of systems are unavailable because the patient's noncommunicative nature and no report from the retirement. Body Location Affected: REPORTS: Chest Timing: REPORTS: Unknown Duration: Unknown Severity: Severe Initiating Event: REPORTS: Upper Respiratory Illness Context: REPORTS: Sleep Exacerbated By: REPORTS: Exertion, Laying Flat, Coughing Associated Symptoms: DENIES: Fever, Chills, Sweating, Chest Pain, Chest Discomfort, Left Chest, Right Chest, Central Chest, Chest Heaviness, Chest Tightness, Painful Breathing, Radiation to Back, Radiation to Jaw, Radiation to Arm, Bloody Cough, Productive Cough, Heart Racing, Leg Pain, Calf Pain, Ankle Swelling, Leg Swelling, Dizziness, Light-Headedness, Anxiety, Tingling - Hands, Tingling - Face, Muscle Spasms - Hands, Muscle Spasms - Feet Similar Symptoms Previously: Yes Recently seen/treated/hospitalized: No - Patient Home Medications Home Medications: Home Medications Albuterol Sulfate [Ventolin Hfa] 2 puff INH Q4-6H #1 inh 06/01/16 ferrous gluconate 324 mg (36 mg iron) tablet 324 mg PO QDAY #30 tab 12/17/17 furosemide 40 mg tablet 40 mg PO QDAY #30 tab 01/22/18 olmesartan 5 mg tablet 5 mg PO QDAY #30 tab 01/22/18 potassium chloride ER 20 mEq tablet,extended release 20 meq PO QDAY #30 tab 01/22/18 fluticasone 200 mcg-vilanterol 25 mcg/dose powder for inhalation 1 inh INH QDAY #28 ea 01/29/18 Albuterol Neb Soln 0.083% 2.5 mg NEB RTQID PRN vial.neb 04/01/18 Aspirin 325 mg PO DAILY tab 04/01/18 Diltiazem 24Hr ER [Cardizem Cd] 120 mg PO DAILY cap.sr.24h 04/01/18 HYDROcodone/APAP 5/325 Tab [[place] 5/325 Tab] 1 tab PO Q4H PRN tab 04/01/18 predniSONE Tab [Deltasone Tab] 20 mg PO DAILY tab 04/01/18 ALPRAZolam Tab [Xanax Tab] 0.25 mg PO TID #14 tab 04/02/18 traMADol HCl [Ultram] 50 mg PO Q6H PRN #14 tab 04/02/18 imipramine 50 mg tablet 50 mg PO QHS tab 04/07/18 multivitamin with calcium and minerals-folic acid 200 mcg tablet 200 mcg PO QDAY tab 04/07/18 pantoprazole 40 mg tablet,delayed release 40 mg PO QDAY tab 04/07/18 umeclidinium 62.5 mcg-vilanterol 25 mcg/actuation powdr for inhalation 1 inh INH Q24H 04/07/18 - Patient Allergies Allergies/Adverse Reactions: Allergies Allergy/AdvReac Type Severity Reaction Status Date / Time Penicillins Allergy Intermediate HIVES Verified 04/07/18 14:14 loratadine [From Claritin] AdvReac Intermediate HALLUCINATI Verified 04/07/18 14:14 ONS Past Medical History - heen HEENT History: Cataracts, Dentures/Partials Additional HEENT History: UPPER DENTURES. . CONTACT IN RIGHT EYE. NEEDS THIS TO SEE. HAD AN EYE INJURY SEVERAL YEARS AGO Cardiovascular History: Hypertension Additional Cardiovasular History: NO MEDS FOR HTN Respiratory History: COPD, Other (please comment) Additional Respiratory History: RECENT DIAGNOSIS OF PULMONARY HTN Gastrointestinal History: Denies History Genitourinary History: Denies History Endocrine History: Denies History Musculoskeletal History: Arthritis, Back Injury, Limited ROM, Osteoarthritis Prosthesis or Implant: Yes (BILAT SHOULDERS) Additional Musculoskeletal History: LIMITED ROM IN RIGHT SHOULDER/LUMBAR RADICULOPATHY Neurological History: Denies History Blood Disorders: Previous Bld Transfusions Psychiatric History: Denies History History of Sexually Transmitted Diseases: No Cancer History: Denies History History of MDRO: No History of Other Communicable Diseases: No Alcohol Use: Other In the Past 12 Months, Have Used or Abuse Any Substance: None Previous Surgical History: Yes Type / Date of Surgery: BILAT TSA/ BACK SX X 10/ COLONOSCOPY/ RIGHT CTR/ TONSILLECTOMY/LEFT CATARACT 06/15/ LUMBAR SPINAL FUSION Anesthesia Reactions: No Malignant Hyperthermia: No Significant Family History: Cancer ROS - Limitations ROS Limitations: Clinical Condition (Management the patient's noncommunicative ness, and uncooperative nature further review of systems is unavailable.) Dyspnea Physical Exam - General Appearance General Appearance: REPORTS: No Evidence of Trauma, Anxious, Severe Distress, Uncooperative - HEENT HEENT: POSITIVE: Head Inspection Nml, Eyes Inspection Nml, Ears Inspection Nml, Nose Inspection Nml, Oral/Dental Inspect. Nml, Pharynx Inspect. Nml, PERRL, EOMI - Neck Neck: REPORTS: Normal Inspection - Respiratory Respiratory: REPORTS: Respiratory Distress, Rales, Prolonged Expirations, Accessory Muscle Use, Retractions, Splinting, Other (Patient tripoding) - Cardiovascular Cardiovascular: REPORTS: No Murmur, No Gallop, No Friction Rub, No JVD, Irregularly Irreg Rhythm, Tachycardia Peripheral Pulses: Radial (R): 3+ - Abdomen Abdomen: Soft: (All Quadrants), Normal Bowel Sounds: (All Quadrants), Denies Tenderness: (All Quadrants), No Splenomegaly: (All Quadrants), No Hepatomegaly: (All Quadrants), No Guarding: (All Quadrants), No Rebound: (All Quadrants), No Palpable Pulse: (All Quadrants), No Palpabale Mass: (All Quadrants), No Distention: (All Quadrants), No Rigidity: (All Quadrants) - Skin Skin: REPORTS: Intact, Normal For Race, Warm, Dry, No Rash - Extremities Extremity: Non-Tender: (All Extremities), Normal ROM: (All Extremities), Normal Inspection: (All Extremities), Pelvis Stable: (All Extremities) - Neurological / Psychological Neurological: POSITIVE: Motor Normal, Sensation Normal, Other (Cannot assess patient's level of orrentation) Dyspnea Progress - Results Reviewed by me Xrays/CTs/US Reviewed by me: Yes Lab Results Reviewed by Me: Yes CBC and BMP: 04/20/18 21:05 04/20/18 21:05 Lab Results:: Laboratory Results 04/20/18 04/20/18 04/20/18 21:05 21:05 21:38 WBC 34.70 H* RBC 3.85 L Hgb 10.8 L Hct 37.1 L MCV 96.4 H MCH 28.1 MCHC 29.1 L RDW Std Deviation 67.9 H RDW Coeff of Lacy 19.7 H Plt Count 411 H MPV 9.1 Immature Gran % (Auto) 1.0 Neut % (Auto) 87.8 H Lymph % (Auto) 9.5 L Butts % (Auto) 1.3 L Eos % (Auto) 0.3 Baso % (Auto) 0.1 Immature Gran # (Auto) 0.34 Neut # (Auto) 30.46 Lymph # (Auto) 3.31 Butts # (Auto) 0.46 Eos # (Auto) 0.09 Baso # (Auto) 0.04 WBC Morphology Comment Normal morphology Plt Morphology Comment Normal morphology RBC Morph Comment Normal morphology Sodium 138 Potassium 5.2 Chloride 99 Carbon Dioxide 30 Anion Gap 9 BUN 34 H Creatinine 1.4 BUN/Creatinine Ratio 24.28 H Glucose 124 H Calculated Osmolality 294.0 H Lactic Acid 2.7 H Calcium 7.8 L Magnesium 2.3 Total Bilirubin 0.6 AST 29 ALT 17 L Alkaline Phosphatase 95 C-Reactive Protein 8.5 H NT-Pro-B Natriuret Pep 2130 H Total Protein 7.5 Albumin 3.9 Globulin 3.6 Albumin/Globulin Ratio 1.00 L EKG Interpreted/Reviewed By Me:: Yes (A. fib, rate controlled, no ST elevations) EKG Interpretation:: POSITIVE: Abnormal EKG (Atrial fibrillation with a rate of 99 beats a minute and no ST changes noted.) - Patient's Progress Pain Medication Addressed: POSITIVE: No Re-Examine Time: 22:56 Status: POSITIVE: Improved MDM / ED Course: Patient was evaluated, an IV started, blood drawn and sent to the lab for studies, chest x-ray and EKG were obtained. Findings: CBC shows a white count of 34.7, hemoglobin of 10.8, hematocrit of 37.1, platelets of 411, 87.8% neutrophils, 9.5% lymphocytes, 1.3% monocytes. CMP shows a BUN of 34, creatinine 1.8, calcium 7.8, glucose 124, ALT is 17. Magnesium is 2.3. BNP is elevated at 2130. CRP is elevated at 8.5. Respiratory panel is negative for all organisms tested. EKG shows an atrial fibrillation with a rate of 99 beats a minute. Chest x-ray, per my inter pretation, shows a bilateral lower lobe pneumonia. Initial VBG shows a pH of 7.2, PCO2 of 76, bicarbonate of 29.7, base equivalency of 2, anion gap of 15. VBG 30 minutes after initiation of BiPAP, and one amp of bicarbonate, shows pH of 7.240, PCO2 of 76.5, bicarbonate of 32.8, base equivalency of 5, anion gap of 14. Assessment: #1 Respiratory failure secondary to pneumonia. #2 anemia. #3 renal insufficiency. #4 congestive heart failure. #5 atrial fibrillation. Plan: Patient is placed on BiPAP and is being admitted to the ICU in critical condition. Patient is DNR/DNI. He receives 2 g of IV Rocephin, 500 mg of IV azithromycin, 2 A of sodium bicarbonate, BiPAP, albuterol 15 mg continuous neb, and Ativan. Quality Measure Initiative: CP/AMI: POSITIVE: EKG Quality Measure Initiative: CAP: POSITIVE: Antibiotic(s), Pathogen, CXR or CT - Consult Consult (If Yes, Name of Consulting MD & Time Called): Yes (Dr. Chiu, 2250hrs) Consulting MD will see pt:: POSITIVE: [facility] Admit Counseled: POSITIVE: Patient, RE: Lab Results, RE: Radiology Results, RE: DX Patient Care Time - Estimated PCT Patient Care Time (In Minutes): 90 Vital Signs - Recent Vital Signs Vital Signs: Vital Signs (Last 8 hours) Resp 04/20/18 21:33 20 04/20/18 21:28 20 - VS Reviewed Vital Signs Reviewed: Yes Critical Care Note - Critical Care Note Total Time (mins): 60 Critical Care: Respiratory Failure, Interpretation of Labs - Management Adjusted Based on Results, Interpretation Imaging Studies - Management Adjusted Based on Results History Source: EMS, shelter records, Old records Discussion with Family: We have attempted multiple times to reach family members and been unsuccessful to this point in time which is 2252 hrs. Discussion with Munitions Handler: I have discussed this patient with Dr. Chiu, the on-call hospitalist, who will be placing the patient in to ICU. Discharge Clinical Impression: Pneumonia Discharge Disposition: Admit to Inpatient Condition: Critical Follow Up With: JG ESPARZA [Primary Care Provider] - Date Decision to Admit to Inpatient: 04/20/18 Time Decision to Admit to Inpatient: 22:50
[2018-04-20 21:16] LABS: BASOPHILS # (AUTO) 0.04 10*3/UL; BASOPHILS % (AUTO) 0.1 % (0-1); EOSINOPHILS # (AUTO) 0.09 10*3/UL; EOSINOPHILS % (AUTO) 0.3 % (0-8); Hematocrit [HCT] 37.1 % (42.0-52.0); Hemoglobin [HGB] 10.8 g/dL (14.0-18.0); LYMPHOCYTES # (AUTO) 3.31 10*3/uL; MEAN CORPUSCULAR HEMOGLOBIN 28.1 PG (27-31); MEAN CORPUSCULAR HGB CONC 29.1 g/dL (33-37); MEAN CORPUSCULAR VOLUME 96.4 FL (80-90); MEAN PLATELET VOLUME 9.1 FL (7.4-12.2); MONOCYTES # (AUTO) 0.46 10*3/UL (0.3-0.8); MONOCYTES % (AUTO) 1.3 % (5-15); NEUTROPHILS # (AUTO) 30.46 10*3/UL; NEUTROPHILS % (AUTO) 87.8 % (50-80); RED BLOOD COUNT 3.85 10^6/uL (4.70-6.10)
[2018-04-20] MEDS ORDERED: ALBUTEROL SULFATE 2.5 MG/3 ML NEB ONE (21:17)
[2018-04-20] MEDS ORDERED: DEXAMETHASONE PF 10 MG/1 ML VIAL IVP ONE (21:17)
[2018-04-20] MEDS ORDERED: SODIUM CL 0.9% FOR INH 3 ML NEB NEB ONE (21:17)
[2018-04-20 21:29] LABS: BLOOD UREA NITROGEN 34 mg/dL (7-22); BUN/CREATININE RATIO 24.28 (6-20); SERUM ALBUMIN 3.9 g/dL (3.5-4.8)
--- NOTE | 2018-04-20 21:39 | EKG ---
[address] [address] Measurements Intervals [place] Rate: 99 P: CO: 0 QRS: 81 QRSD: 93 T: 68 QT: 320 QTc: 376 Interpretive Statements PROBABLE SINUS RHYTHM,WITH WANDERING ATRIAL PACEMAKER INDETERMINATE AXIS RIGHT VENTRICULAR CONDUCTION DELAY ABNORMAL RHYTHM ECG Compared to ECG 03/05/2018 17:50:04 Atrial flutter no longer present ST (T wave) deviation no longer present Electronically Signed On 04-21-18 14:29:55 MST by Nas Garcia [email or web address]
[2018-04-20 21:55] LABS: PLATELET MORPHOLOGY COMMENT NORMAL MORPHOLOGY (NORM); RBC MORPHOLOGY COMMENT NORMAL MORPHOLOGY (NORM); WBC MORPHOLOGY COMMENT NORMAL MORPHOLOGY (NORM)
[2018-04-20] MEDS ORDERED: D5-1/2NS 1,000 ML with Sodium Bicarb 150 MEQ IV ONE ×2 (22:05)
[2018-04-20] MEDS ORDERED: [UNRECOGNIZED DRUG - OTHER] PRIMARY IV ONE (22:18)
[2018-04-20] MEDS ORDERED: DEXTROSE PRIMARY IV ONE (22:18)
[2018-04-20] MEDS ORDERED: SODIUM BICARBONATE 8.4% - 50 ML ADULT SYRINGE IVP ONE ×2 (22:20→23:02)
[2018-04-20] MEDS ORDERED: LORazepam 2 MG/1 ML VIAL IVP ONE (22:25)
[2018-04-20] MEDS ORDERED: LORazepam 2 MG/1 ML VIAL ONE (22:30)
[2018-04-20] MEDS ORDERED: cefTRIAXone Inj 2 GM in Sodium Chloride 0.9% 100 ML IV ONE (22:41)
--- NOTE | 2018-04-20 22:59 | DI ---
EXAM: XR Chest, 1 View CLINICAL HISTORY: ITS.REASON sob/hypoxia Physician Notes: Tech Comments: TECHNIQUE: Frontal view of the chest. COMPARISON: No relevant prior studies available. FINDINGS: Lungs: Pulmonary emphysema. Bibasilar infiltrates. Pleural space: Unremarkable. No pneumothorax. Heart: Unremarkable. No cardiomegaly. Mediastinum: Unremarkable. Bones/joints: Hardware in the spine. Shoulder replacements. IMPRESSION: Pulmonary emphysema. Bibasilar infiltrates.
--- NOTE | 2018-04-20 23:37 | PDOC ---
HPI - History of Present Illness Date of Service: 04/20/18 Time of Service: 23:30 Chief Complaint: Confusion, shortness of breath History of Present Illness: This is 73 years old male with medical history significant for history of COPD on oxygen, atrial fibrillation, hypertension, reduced ejection fraction who was sent to the hospital from the senior care because of respiratory distress and hypoxia. No meaningful information can be obtained from the patient. The EMS when they first assessed him had an O2 saturation of 75%. However the waveform was poor. Evaluation in the ER revealed bilateral pneumonia, worsening respiratory failure he was given antibiotics and was admitted. He was also started on BiPAP. He did receive also some Ativan down in the ER because of agitation. I did speak to the niece who is a nurse at the hospital she says she did talk to him earlier in the afternoon today and he did mention to her that she had some shortness of breath but he was able to make a conversation with her. By the time patient came into the ICU his blood pressure dropped to 60 systolic. We gave him a bolus of fluid and blood pressure responded. However we were unable to get his saturation. He had an arterial blood gas which showed a PO2 of 53, PCO2 went down to 60 from 76 done in the ER, his pH improved from 7.2 7.29. Past Medical History Medical History: 1. History of COPD on oxygen. 2. History of atrial fibrillation on aspirin for prophylaxis. 3. History of pulmonary hypertension. 4. History of hematoma right medial thigh while on anticoagulant. 5. Admission in February 2018 for COPD exacerbation secondary to pneumonia and atrial fibrillation with RVR. 6. History of reduced systolic function ejection fraction 45-50% on echocardiogram done February 2018. 7. Moderate tricuspid and mitral regurgitation on echocardiogram done February 2018 Surgical History: 1. History of lumbar spinal fusion. 2. History of shoulder surgery. 3. History of tonsillectomy Family History: Reviewed an Not Pertinent Past Social History: Used to smoke no drugs, doesn't drink. Currently reside at the senior care. Tobacco Use: Former Smoker In the Past 12 Months, Have Used or Abuse Any of the Following Substance: None Alcohol Use: None Medication / Allergies Home Medications: Home Medications Medication Instructions Recorded Confirmed Type Albuterol Sulfate [Ventolin Hfa] 2 puff INH Q4-6H #1 inh 06/01/16 04/21/18 Rx ferrous gluconate 324 mg (36 mg 324 mg PO QDAY #30 tab 12/17/17 04/21/18 Rx iron) tablet furosemide 40 mg tablet 40 mg PO QDAY #30 tab 01/22/18 04/21/18 Rx olmesartan 5 mg tablet 5 mg PO QDAY #30 tab 01/22/18 04/21/18 Rx potassium chloride ER 20 mEq 20 meq PO QDAY #30 tab 01/22/18 04/21/18 Rx tablet,extended release fluticasone 200 mcg-vilanterol 25 1 inh INH QDAY #28 ea 01/29/18 04/21/18 Rx mcg/dose powder for inhalation Albuterol Neb Soln 0.083% 2.5 mg NEB RTQID PRN vial.neb 04/01/18 04/21/18 Rx Aspirin 325 mg PO DAILY tab 04/01/18 04/21/18 Rx Diltiazem 24Hr ER [Cardizem Cd] 120 mg PO DAILY cap.sr.24h 04/01/18 04/21/18 Rx HYDROcodone/APAP 5/325 Tab [[place] 1 tab PO Q4H PRN tab 04/01/18 04/21/18 Rx 5/325 Tab] predniSONE Tab [Deltasone Tab] 20 mg PO DAILY tab 04/01/18 04/21/18 Rx ALPRAZolam Tab [Xanax Tab] 0.25 mg PO TID #14 tab 04/02/18 04/21/18 Rx traMADol HCl [Ultram] 50 mg PO Q6H PRN #14 tab 04/02/18 04/21/18 Rx imipramine 50 mg tablet 50 mg PO QHS tab 04/07/18 04/21/18 History multivitamin with calcium and 200 mcg PO QDAY tab 04/07/18 04/21/18 History minerals-folic acid 200 mcg tablet pantoprazole 40 mg tablet,delayed 40 mg PO QDAY tab 04/07/18 04/21/18 History release umeclidinium 62.5 mcg-vilanterol 1 inh INH Q24H 04/07/18 04/21/18 History 25 mcg/actuation powdr for inhalation ALPRAZolam Tab [Xanax Tab] 0.25 mg PO BID 04/21/18 04/21/18 History Allergies/Adverse Reactions: Allergies Allergy/AdvReac Type Severity Reaction Status Date / Time Penicillins Allergy Intermediate HIVES Verified 04/21/18 01:26 loratadine [From Claritin] AdvReac Intermediate HALLUCINATI Verified 04/21/18 01:26 ONS Review of Systems - Review of Systems All Systems: Reviewed & No Additional Complaints Except as Stated Exam - Vitals Vital Signs: Vital Signs Temperature 100.9 F Temperature Source Temporal Artery Scan Pulse Rate [Pulse Oximeter] 98 Respiratory Rate 20 Blood Pressure [Right Arm] 112/72 Oxygen Delivery Method T-Piece Height 5 ft 10 in Weight 130 lb - General Additional General Exam Details: Patient is a unresponsive - Head Head Exam: Normal Inspection - ENT Additonal ENT Exam Details: Patient is wearing the BiPAP. - Respiratory Additional Respiratory Exam Details: Very decreased air entry with few crackles worse on the right compared to the left. - Cardiovascular Cardiovascular Exam: POSITIVE: Irregular Rhythm - GI/Abdominal GI/Abdominal Exam: POSITIVE: Normal Bowel Sounds, Non Tender, Non Distended, Soft, No Organomegaly - Rectal Rectal Exam: POSITIVE: Deferred - External Exam: POSITIVE: Deferred - Extremities Additional Extremities Exam Details: Some mottling noted in the extremities. No edema noted. - Neurological Additional Neurological Exam Details: Patient is unconscious. Some withdrawal response elicited. Did later on while performing ICU assessments that he is moving his extremities. Which was non- purposeful movement. Results - Labs CBC and BMP: 04/20/18 21:05 04/20/18 21:05 - EKG Data -: EKG Interpreted by Me (EKG showed atrial fibrillation with incomplete right bundle branch block) - Imaging Status: Report Reviewed by Me (Chest X ray Pulmonary emphysema. Bibasilar infiltrates.) Assessment and Plan - Patient Problems (1) Acute and chronic respiratory failure Current Visit: Yes Status: Acute Comment: Likely secondary to pneumonia, will treat as the hospital-acquired pneumonia. Will put him on vancomycin, meropenem and Levaquin. We'll continue breathing treatments will start him also on steroids. Code(s): J96.20 - Acute and chronic respiratory failure, unspecified whether with hypoxia or hypercapnia (2) Sepsis Current Visit: Yes Status: Acute Comment: Likely secondary to the infection. Will treat with supportive care. I did discuss with the niece in case he doesn't respond to IV fluids and we need to put him on vasopressor they will think about it and let me know. So far we don't need it. Did consult eICU. Code(s): A41.9 - Sepsis, unspecified organism (3) Pneumonia Current Visit: Yes Status: Acute Comment: As I said we will start on antibiotic treatment as hospital-acquired pneumonia with Levaquin, vancomycin and meropenem. Code(s): J18.9 - Pneumonia, unspecified organism (4) DVT prophylaxis Current Visit: Yes Status: Acute Comment: We'll put him on Lovenox
[2018-04-21] MEDS ORDERED: Vancomycin-PHA to Dose IV PRN (00:03)
[2018-04-21] MEDS ORDERED: Levofloxacin (Premix) 750 MG/150 ML PIGGYBACK IV SCH (00:15)
[2018-04-21] MEDS ORDERED: Meropenem Inj 1 GM in Sodium Chloride 0.9% 100 ML IV SCH (00:15)
[2018-04-21] MEDS ORDERED: Sodium Chloride 0.9% 50 ML ONE (00:27)
[2018-04-21] MEDS ORDERED: LORazepam 2 MG/1 ML VIAL IVP ONE (00:49)
[2018-04-21] MEDS ORDERED: LORazepam 2 MG/1 ML VIAL ONE (00:52)
[2018-04-21] MEDS ORDERED: Sodium Chloride 0.9% 1,000 ML PRIMARY IV SCH ×2 (01:00→02:45)
[2018-04-21] MEDS ORDERED: ALBUTEROL SULFATE 2.5 MG/3 ML NEB PRN (01:08)
[2018-04-21] MEDS ORDERED: ONDANSETRON 4 MG/2 ML VIAL IV PRN (01:11)
[2018-04-21] MEDS ORDERED: LIDOCAINE W/ SODIUM BICARB 0.5 ML SYR SUBD PRN (01:11)
[2018-04-21 01:18] LABS: VENOUS PH 7.2 (7.32-7.42)
[2018-04-21 01:21] LABS: VENOUS PH 7.24 (7.32-7.42)
[2018-04-21] MEDS ORDERED: LIDOCAINE HCL 2 % 10 ML JELLY URO-JECT TOPICAL PRN (01:22)
[2018-04-21 01:24] LABS: ABG BASE EXCESS 3 MMOL/L (-2-2); ABG OXYGEN SATURATION 76 % (90-100); ABG PCO2 61 MMHG (34-38); ABG PO2 53 MMHG (65-75); ALLEN TEST Y
[2018-04-21] MEDS ORDERED: methylPREDNISolone 125 MG/2 ML VIAL IVP SCH (01:30)
[2018-04-21] MEDS ORDERED: Sodium Chloride 0.9% 500 ML PRIMARY IV ONE (01:35)
[2018-04-21] MEDS ORDERED: Sodium Chloride 0.9% 1,000 ML PRIMARY IV ONE (02:24)
[2018-04-21] MEDS ORDERED: LORazepam 2 MG/1 ML VIAL IVP PRN (02:35)
[2018-04-21] MEDS ORDERED: Morphine Drip 250mg/250ml 250 MG/250 ML PLAST..BAG IV SCH (02:45)
[2018-04-21] MEDS ORDERED: Hypromellose/Glycerin/PEG 400 Ophth Soln 15 ML DROPS EACH EYE SCH (02:45)
[2018-04-21] MEDS ORDERED: Keys-Morphine PCA ONE (02:55)
[2018-04-21] MEDS ORDERED: Keys-Morphine Palliative Care ONE (03:06)
[2018-04-21] MEDS ORDERED: IPRATROPIUM/ALBUTEROL SULFATE 3 ML NEB NEB SCH (07:00)
--- NOTE | 2018-04-21 08:33 | DCSUMMARY ---
Hospitalization Summary Admit Date: 04/20/2018 Discharge Date: 04/21/18 Hospital Course: diagnoses 1. Bilateral pneumonia 2. Sepsis 3. Acute on chronic respiratory failure 4. History of atrial fibrillation 5. Leukocytosis Hospital course This is a 73 years old male with medical history significant for history of COPD on oxygen, atrial fibrillation, hypertension, reduced ejection fraction who was [facility] to the [facility] from the [facility] because of respiratory distress and hypoxia. No meaningful information can be obtained from the patient. The EMS when they first assessed him had an O2 saturation of 75%. However the waveform was poor. Evaluation in the ER revealed bilateral pneumonia, worsening respiratory failure he was given antibiotics and was admitted. He was also started on BiPAP. He did receive also some Ativan down in the ER because of agitation. I did speak to the niece who is a nurse at the hospital she says she did talk to him earlier in the afternoon today and he did mention to her that she had some shortness of breath but he was able to make a conversation with her. By the time patient came into the ICU his blood pressure dropped to 60 systolic. We gave him a bolus of fluid and blood pressure responded. However we were unable to get his saturation. He had an arterial blood gas which showed a PO2 of 53, PCO2 went down to 60 from 76 done in the ER, his pH improved from 7.2 7.29. We continued with the fluid and we started him on IV antibiotics and we continued the BiPAP. I had a discussion with the niece as his blood pressure remained low and also his saturation remained low after talking to her mother who is the power of attorney general for the patient and his sister they decided on comfort care. All medication were discontinued patient was put on IV morphine drip in addition to Ativan as needed and the patient passed peacefully around 4 AM. Exam - Vitals Vital Signs: Vital Signs Temperature 101.3 F Temperature Source Axillary Pulse Rate [Pulse Oximeter] 110 Pulse Rate 115 Respiratory Rate 30 Blood Pressure [Left Arm] 81/57 Blood Pressure [Right Arm] 112/72 Blood Pressure 117/58 Pulse Ox 84 Oxygen Delivery Method Bi-PAP Height 5 ft 10 in Weight 130 lb Patient Problems - Patient Problem List (1) Acute and chronic respiratory failure Status: Acute Code(s): J96.20 - Acute and chronic respiratory failure, unspecified whether with hypoxia or hypercapnia Category: Medical (2) Sepsis Status: Acute Code(s): A41.9 - Sepsis, unspecified organism Category: Medical (3) Pneumonia Status: Acute Code(s): J18.9 - Pneumonia, unspecified organism Category: Medical (4) DVT prophylaxis Status: Acute Category: Medical
[2018-04-21] MEDS ORDERED: ENOXAPARIN SODIUM 40 MG/0.4 ML SYRINGE SUBCUT SCH (09:00)
[2018-04-21] MEDS ORDERED: PANTOPRAZOLE IV 40 MG VIAL IVP SCH (09:00)
[2018-04-25 18:02] VITALS: BP 117/58; RESP 30; TEMP 101.3; O2SAT 84
== END 2018-04-21 04:03 | disposition expired | DRG 193 ==
LOC: ER 21:02 → ICU 23:07 → MED/SURG 04-21 02:46
PROVIDERS: ADMIT Internal Medicine; ATTEND Internal Medicine